=== PATIENT | male | born 1940 | race Two or more races ===

== ENCOUNTER → 2016-04-12 | Outpatient (CLI) | payer MEDICARE, MEDICAID ==
[2016-04-12] VITALS (9 sets, daily range): BP systolic 123–136; BP diastolic 70–85
[~2016-04-12] MED LIST: CYANOCOBALAMIN (B-12) 1000 MCG/1 ML VIAL IM ONE; CYANOCOBALAMIN (B-12) 1000 MCG/1 ML VIAL ONE; FUROSEMIDE INJECTION 10 ML ONE; FUROSEMIDE INJECTION 100 MG in SODIUM CHL 0.9% 100 ML IV SCH; ONDANSETRON HCL 4 MG/2 ML VIAL IV ONE; ONDANSETRON HCL 4 MG/2 ML VIAL ONE; POTASSIUM CHL 20 Meq TABLET PO ONE
[2016-04-12 16:37] LABS: Basophils # (auto) 0 uL; Basophils % (auto) 0.4 % (0.0-2.0); Eosinophils # (auto) 0.3 uL; Eosinophils % (auto) 4.9 % (0.0-7.0); Hematocrit 39.8 % (41.0-53.0); Hemoglobin 12.9 g/dL (13.5-17.5); Lymphocytes # (auto) 2.1 uL; Lymphocytes % (auto) 35.5 % (10.0-50.0); Mean Corpuscular Hgb Conc. 32.5 g/dL (32.0-36.0); Mean Corpuscular Volume 92.4 fL (80.0-100.0); Mean Platelet Volume 8.1 fL (7.4-10.4); Monocytes # (auto) 0.5 uL; Monocytes % (auto) 8.7 % (0.0-12.0); Neutrophils % (auto) 50.5 % (37.0-80.0); Platelet Count (auto) 222 10^3/uL (140-450); Red Cell Distribution Width 14.3 % (11.6-16.0); White Blood Cell 5.9 10^3/uL (4.4-10.8)
[2016-04-12 16:41] LABS: BUN/Creatinine Ratio 14.9; Calcium 9.1 mg/dL (8.5-10.1); Magnesium 2.3 mg/dL (1.6-2.6); Potassium 3.2 mmol/L (3.5-5.1)
== END | disposition home or self-care (01) ==
LOC: CHF HDHVI 12:21
PROVIDERS: ATTEND Internal Medicine Cardiovascular Disease
DX: I10 Essential (primary) hypertension (principal); E83.40 Disorders of magnesium metabolism, unspecified; D64.9 Anemia, unspecified
CPT/HCPCS: 36415; 80048; 83735; 85025; 96365; 96366; 96367; 96372; G0463; J2405

== ENCOUNTER → 2016-04-20 | Outpatient (CLI) | payer MEDICARE, MEDICAID ==
[~2016-04-20] VITALS: Ht 33 cm; Wt 0.5 kg
[2016-04-20] VITALS (10 sets, daily range): BP systolic 120–141; BP diastolic 72–83
[~2016-04-20] MED LIST changes: +FUROSEMIDE INJECTION 100 MG in SODIUM CHL 0.9% 90 ML IV SCH; -POTASSIUM CHL 20 Meq TABLET PO ONE
[2016-04-20 14:23] LABS: Basophils # (auto) 0 uL; Basophils % (auto) 0.6 % (0.0-2.0); Eosinophils # (auto) 0.2 uL; Eosinophils % (auto) 4.9 % (0.0-7.0); Hematocrit 38.5 % (41.0-53.0); Hemoglobin 12.4 g/dL (13.5-17.5); Lymphocytes # (auto) 1.6 uL; Lymphocytes % (auto) 31.7 % (10.0-50.0); Mean Corpuscular Hemoglobin 29.9 pg (28.0-32.0); Mean Corpuscular Hgb Conc. 32.3 g/dL (32.0-36.0); Mean Corpuscular Volume 92.6 fL (80.0-100.0); Mean Platelet Volume 8.1 fL (7.4-10.4); Monocytes # (auto) 0.3 uL; Neutrophils # (auto) 2.8 uL; Neutrophils % (auto) 55.8 % (37.0-80.0); Platelet Count (auto) 221 10^3/uL (140-450); Red Cell Distribution Width 14.5 % (11.6-16.0); White Blood Cell 4.9 10^3/uL (4.4-10.8)
[2016-04-20 14:40] LABS: BUN/Creatinine Ratio 14.8; Calcium 8.9 mg/dL (8.5-10.1); Magnesium 2.5 mg/dL (1.6-2.6); Potassium 3.5 mmol/L (3.5-5.1)
== END | disposition home or self-care (01) ==
LOC: CHF HDHVI 10:18
PROVIDERS: ATTEND Internal Medicine Cardiovascular Disease
DX: I10 Essential (primary) hypertension (principal); E83.40 Disorders of magnesium metabolism, unspecified; D64.9 Anemia, unspecified
CPT/HCPCS: 36415; 80048; 83735; 85025; 96365; 96366; 96367; 96372; G0463; J1642; J2405

== ENCOUNTER → 2016-04-26 | Outpatient (CLI) | payer MEDICARE, MEDICAID ==
[~2016-04-26] MED LIST changes: -CYANOCOBALAMIN (B-12) 1000 MCG/1 ML VIAL IM ONE; -FUROSEMIDE INJECTION 100 MG in SODIUM CHL 0.9% 100 ML IV SCH; -FUROSEMIDE INJECTION 100 MG in SODIUM CHL 0.9% 90 ML IV SCH; -ONDANSETRON HCL 4 MG/2 ML VIAL IV ONE; +POTASSIUM CHL 10 Meq TABLET PO ONE
[2016-04-26 12:15] VITALS: BP 137/83
[2016-04-26 12:45] VITALS: BP 137/82
[2016-04-26 13:00] VITALS: BP 125/77
[2016-04-26 13:30] VITALS: BP 128/58
[2016-04-26 15:15] VITALS: BP 141/80
[2016-04-26 16:53] LABS: Calcium 8.5 mg/dL (8.5-10.1); Magnesium 2.3 mg/dL (1.6-2.6); Potassium 3.2 mmol/L (3.5-5.1)
[2016-04-26 16:55] LABS: BUN/Creatinine Ratio 15.8
[2016-04-26 17:05] LABS: Basophils # (auto) 0 uL; Basophils % (auto) 0.6 % (0.0-2.0); Eosinophils # (auto) 0.3 uL; Eosinophils % (auto) 5.6 % (0.0-7.0); Hematocrit 37.7 % (41.0-53.0); Hemoglobin 12.6 g/dL (13.5-17.5); Lymphocytes # (auto) 1.5 uL; Lymphocytes % (auto) 31.9 % (10.0-50.0); Mean Corpuscular Hemoglobin 30.6 pg (28.0-32.0); Mean Corpuscular Hgb Conc. 33.5 g/dL (32.0-36.0); Mean Corpuscular Volume 91.4 fL (80.0-100.0); Mean Platelet Volume 7.8 fL (7.4-10.4); Monocytes # (auto) 0.3 uL; Neutrophils # (auto) 2.5 uL; Neutrophils % (auto) 54.9 % (37.0-80.0); Platelet Count (auto) 257 10^3/uL (140-450); Red Cell Distribution Width 14.4 % (11.6-16.0); White Blood Cell 4.6 10^3/uL (4.4-10.8)
== END | disposition home or self-care (01) ==
LOC: CHF HDHVI 11:44
PROVIDERS: ATTEND Internal Medicine Cardiovascular Disease
DX: I10 Essential (primary) hypertension (principal); D64.9 Anemia, unspecified; E83.40 Disorders of magnesium metabolism, unspecified
CPT/HCPCS: 36415; 80048; 83735; 85025; 85049; J1642; J2405

== ENCOUNTER → 2016-05-03 | Outpatient (CLI) | payer MEDICARE, MEDICAID ==
[2016-05-03] VITALS (7 sets, daily range): BP systolic 112–130; BP diastolic 59–76
[~2016-05-03] MED LIST changes: +CYANOCOBALAMIN (B-12) 1000 MCG/1 ML VIAL IM ONE; +FUROSEMIDE INJECTION 100 MG in SODIUM CHL 0.9% 100 ML IV SCH; -ONDANSETRON HCL 4 MG/2 ML VIAL ONE; -POTASSIUM CHL 10 Meq TABLET PO ONE
[2016-05-03 12:35] LABS: Basophils # (auto) 0.1 uL; Eosinophils # (auto) 0.3 uL; Eosinophils % (auto) 6.1 % (0.0-7.0); Hematocrit 37.3 % (41.0-53.0); Hemoglobin 12.2 g/dL (13.5-17.5); Lymphocytes # (auto) 1.7 uL; Lymphocytes % (auto) 31.9 % (10.0-50.0); Mean Corpuscular Hemoglobin 30.7 pg (28.0-32.0); Mean Corpuscular Hgb Conc. 32.7 g/dL (32.0-36.0); Mean Corpuscular Volume 93.9 fL (80.0-100.0); Mean Platelet Volume 7.8 fL (7.4-10.4); Monocytes # (auto) 0.5 uL; Monocytes % (auto) 8.9 % (0.0-12.0); Neutrophils # (auto) 2.8 uL; Platelet Count (auto) 205 10^3/uL (140-450); Red Cell Distribution Width 14.2 % (11.6-16.0); SUSPECT VIEW TRANSMISSION; White Blood Cell 5.4 10^3/uL (4.4-10.8)
[2016-05-03 12:37] LABS: Basophils % (auto) 0.1 % (0.0-2.0)
[2016-05-03 13:34] LABS: BUN/Creatinine Ratio 15.9; Calcium 8.7 mg/dL (8.5-10.1); Magnesium 2.3 mg/dL (1.6-2.6); Potassium 3.3 mmol/L (3.5-5.1)
== END | disposition home or self-care (01) ==
LOC: CHF HDHVI 10:21
PROVIDERS: ATTEND Internal Medicine Cardiovascular Disease
DX: I10 Essential (primary) hypertension (principal); E83.40 Disorders of magnesium metabolism, unspecified; D64.9 Anemia, unspecified
CPT/HCPCS: 36415; 80048; 83735; 85025; 85049; 96365; 96366; 96372; G0463; J1642

== ENCOUNTER → 2016-05-12 | Outpatient (CLI) | payer MEDICARE, MEDICAID ==
[2016-05-12] VITALS (10 sets, daily range): BP systolic 129–148; BP diastolic 70–79
[~2016-05-12] MED LIST changes: -CYANOCOBALAMIN (B-12) 1000 MCG/1 ML VIAL IM ONE; -CYANOCOBALAMIN (B-12) 1000 MCG/1 ML VIAL ONE; -FUROSEMIDE INJECTION 10 ML ONE
[2016-05-12] MEDS: CYANOCOBALAMIN (B-12) 1000 MCG/1 ML VIAL IM ONE (12:21)
[2016-05-12] MEDS: KETOROLAC TROMETH 60MG/2ML VIAL IM ONE ×2 (12:22→14:48)
[2016-05-12] MEDS: FUROSEMIDE INJECTION 100 MG in SODIUM CHL 0.9% 100 ML IV ONE (12:40)
[2016-05-12] MEDS: FUROSEMIDE INJECTION 10 ML ONE (14:47)
[2016-05-12] MEDS: CYANOCOBALAMIN (B-12) 1000 MCG/1 ML VIAL ONE (14:48)
[2016-05-12] MEDS: POTASSIUM CHL 20 Meq TABLET PO ONE ×2 (15:10→15:12)
[2016-05-12 16:17] LABS: Basophils # (auto) 0 uL; Basophils % (auto) 0.4 % (0.0-2.0); Eosinophils # (auto) 0.2 uL; Eosinophils % (auto) 4.4 % (0.0-7.0); Hematocrit 37.3 % (41.0-53.0); Hemoglobin 11.8 g/dL (13.5-17.5); Lymphocytes # (auto) 1.6 uL; Lymphocytes % (auto) 29.8 % (10.0-50.0); Mean Corpuscular Hemoglobin 29.5 pg (28.0-32.0); Mean Corpuscular Hgb Conc. 31.6 g/dL (32.0-36.0); Mean Corpuscular Volume 93.1 fL (80.0-100.0); Mean Platelet Volume 7.8 fL (7.4-10.4); Monocytes # (auto) 0.5 uL; Neutrophils % (auto) 55.4 % (37.0-80.0); Platelet Count (auto) 268 10^3/uL (140-450); Red Cell Distribution Width 14.8 % (11.6-16.0); White Blood Cell 5.3 10^3/uL (4.4-10.8)
[2016-05-12 16:42] LABS: Calcium 8.7 mg/dL (8.5-10.1); Potassium 3.9 mmol/L (3.5-5.1)
== END | disposition home or self-care (01) ==
LOC: CHF HDHVI 12:04
PROVIDERS: ATTEND Internal Medicine Cardiovascular Disease
DX: I10 Essential (primary) hypertension (principal); D64.9 Anemia, unspecified
CPT/HCPCS: 36415; 80048; 85025; 96365; 96366; 96367; 96372; G0463; J1642; J1885

== ENCOUNTER → 2016-05-26 | Outpatient (CLI) | payer MEDICARE, MEDICAID ==
[~2016-05-26] MED LIST changes: -FUROSEMIDE INJECTION 100 MG in SODIUM CHL 0.9% 100 ML IV SCH; +POTASSIUM CHL 20 Meq TABLET PO ONE
[2016-05-26 15:19] LABS: Basophils # (auto) 0 uL; Basophils % (auto) 0.5 % (0.0-2.0); Eosinophils # (auto) 0.4 uL; Eosinophils % (auto) 7.9 % (0.0-7.0); Hematocrit 39.9 % (41.0-53.0); Hemoglobin 12.8 g/dL (13.5-17.5); Lymphocytes # (auto) 2.5 uL; Lymphocytes % (auto) 45.5 % (10.0-50.0); Mean Corpuscular Hemoglobin 29.7 pg (28.0-32.0); Mean Corpuscular Hgb Conc. 32.1 g/dL (32.0-36.0); Mean Corpuscular Volume 92.4 fL (80.0-100.0); Mean Platelet Volume 7.5 fL (7.4-10.4); Monocytes # (auto) 0.4 uL; Monocytes % (auto) 8.1 % (0.0-12.0); Neutrophils # (auto) 2.1 uL; Platelet Count (auto) 256 10^3/uL (140-450); Red Cell Distribution Width 14.7 % (11.6-16.0); White Blood Cell 5.4 10^3/uL (4.4-10.8)
[2016-05-26 15:32] LABS: Albumin 3.6 g/dL (3.4-5.0); BUN/Creatinine Ratio 15.1; Calcium 8.9 mg/dL (8.5-10.1); Magnesium 2.1 mg/dL (1.6-2.6); Potassium 3.3 mmol/L (3.5-5.1)
[2016-05-26 15:35] LABS: Bilirubin, Total 0.7 mg/dL (0.2-1.0); Total Protein 7.4 g/dL (6.4-8.2)
[2016-05-26] MEDS: POTASSIUM CHL 20 Meq TABLET PO ONE (16:10)
[2016-05-26 16:35] VITALS: BP 115/64
== END | disposition home or self-care (01) ==
LOC: CHF HDHVI 14:26
PROVIDERS: ATTEND Internal Medicine Cardiovascular Disease
DX: I10 Essential (primary) hypertension (principal); D64.9 Anemia, unspecified; E83.40 Disorders of magnesium metabolism, unspecified; E11.9 Type 2 diabetes mellitus without complications; E03.9 Hypothyroidism, unspecified
CPT/HCPCS: 36415; 80053; 82962; 83036; 83735; 84443; 85025; 93005; G0463; J1642

== ENCOUNTER → 2016-05-29 | Outpatient (CLI) | payer MEDICARE, MEDICAID ==
[~2016-05-29] MED LIST changes: +CYANOCOBALAMIN (B-12) 1000 MCG/1 ML VIAL ONE; +FUROSEMIDE INJECTION 10 ML ONE; +ONDANSETRON HCL 4 MG/2 ML VIAL ONE; -POTASSIUM CHL 20 Meq TABLET PO ONE; +diphenhdrAMINE HCL 50 MG/1 ML VL ONE
[2016-05-29 12:30] VITALS: BP 130/68
[2016-05-29 13:30] VITALS: BP 143/76
[2016-05-29 14:00] VITALS: BP 126/68
[2016-05-29 15:00] VITALS: BP 149/81
[2016-05-29 15:30] VITALS: BP 121/70
[2016-05-29 16:30] VITALS: BP 136/75
[2016-05-29 17:46] LABS: Potassium 3.3 mmol/L (3.5-5.1)
== END | disposition home or self-care (01) ==
LOC: CHF HDHVI 11:37
PROVIDERS: ATTEND Internal Medicine Cardiovascular Disease
DX: I50.9 Heart failure, unspecified (principal); Z79.899 Other long term (current) drug therapy
CPT/HCPCS: 36415; 82565; 82962; 84132; 84520; J1642; J2405

== ENCOUNTER → 2016-06-05 | Outpatient (CLI) | payer MEDICARE, MEDICAID ==
[2016-06-05] VITALS (11 sets, daily range): BP systolic 116–149; BP diastolic 56–77
[~2016-06-05] MED LIST changes: +CYANOCOBALAMIN (B-12) 1000 MCG/1 ML VIAL IM ONE; +FUROSEMIDE 100 MG/10ML VIAL IV ONE; -ONDANSETRON HCL 4 MG/2 ML VIAL ONE; +diphenhdrAMINE HCL 50 MG/1 ML VL IV ONE; +methylPREDNISolone SOD SUCC 125 MG/2 ML VL IV ONE; +methylPREDNISolone SOD SUCC 125 MG/2 ML VL ONE
[2016-06-05 16:25] LABS: Basophils # (auto) 0 uL; Basophils % (auto) 0.3 % (0.0-2.0); Eosinophils # (auto) 0.4 uL; Hemoglobin 12.4 g/dL (13.5-17.5); Lymphocytes # (auto) 1.8 uL; Lymphocytes % (auto) 33.2 % (10.0-50.0); Mean Corpuscular Hgb Conc. 33.3 g/dL (32.0-36.0); Mean Corpuscular Volume 93.1 fL (80.0-100.0); Mean Platelet Volume 8.3 fL (7.4-10.4); Monocytes # (auto) 0.4 uL; Monocytes % (auto) 7.3 % (0.0-12.0); Neutrophils # (auto) 2.8 uL; Neutrophils % (auto) 52.2 % (37.0-80.0); Platelet Count (auto) 238 10^3/uL (140-450); Red Cell Distribution Width 15.6 % (11.6-16.0); White Blood Cell 5.3 10^3/uL (4.4-10.8)
[2016-06-05 16:48] LABS: Potassium 3.2 mmol/L (3.5-5.1)
== END | disposition home or self-care (01) ==
LOC: CHF HDHVI 11:34
PROVIDERS: ATTEND Internal Medicine Cardiovascular Disease
DX: I50.9 Heart failure, unspecified (principal); Z79.899 Other long term (current) drug therapy; D64.9 Anemia, unspecified
CPT/HCPCS: 36415; 82565; 84132; 84520; 85025; 96365; 96366; 96372; 96375; G0463; J1642

== ENCOUNTER → 2016-06-09 | Outpatient (CLI) | payer MEDICARE, MEDICAID ==
[~2016-06-09] MED LIST changes: -CYANOCOBALAMIN (B-12) 1000 MCG/1 ML VIAL IM ONE; -FUROSEMIDE 100 MG/10ML VIAL IV ONE; +KETOROLAC TROMETH 60MG/2ML VIAL IM ONE; +ONDANSETRON HCL 4 MG/2 ML VIAL IV ONE; +ONDANSETRON HCL 4 MG/2 ML VIAL ONE; +POTASSIUM CHL 20 Meq TABLET PO ONE; -diphenhdrAMINE HCL 50 MG/1 ML VL IV ONE; -diphenhdrAMINE HCL 50 MG/1 ML VL ONE; -methylPREDNISolone SOD SUCC 125 MG/2 ML VL IV ONE; -methylPREDNISolone SOD SUCC 125 MG/2 ML VL ONE
[2016-06-09 11:50] VITALS: BP 117/70
== END | disposition home or self-care (01) ==
LOC: CHF HDHVI 11:06
PROVIDERS: ATTEND Internal Medicine Cardiovascular Disease
DX: I50.9 Heart failure, unspecified (principal); R11.0 Nausea; G89.29 Other chronic pain
CPT/HCPCS: 96372; 96374; G0463; J1642; J1885; J2405

== ENCOUNTER → 2016-06-12 | Outpatient (CLI) | payer MEDICARE, MEDICAID ==
[2016-06-12 12:15] VITALS: BP 118/64
[2016-06-12 13:00] VITALS: BP 113/62
[2016-06-12 13:30] VITALS: BP 128/83
[2016-06-12 14:00] VITALS: BP 125/70
[2016-06-12 14:30] VITALS: BP 135/69
[2016-06-12 15:00] VITALS: BP 131/74
[2016-06-12 16:19] LABS: Basophils # (auto) 0 uL; Basophils % (auto) 0.5 % (0.0-2.0); Eosinophils # (auto) 0.3 uL; Eosinophils % (auto) 6.6 % (0.0-7.0); Hematocrit 36.2 % (41.0-53.0); Hemoglobin 12.5 g/dL (13.5-17.5); Lymphocytes # (auto) 1.5 uL; Lymphocytes % (auto) 28.5 % (10.0-50.0); Mean Corpuscular Hemoglobin 32.3 pg (28.0-32.0); Mean Corpuscular Hgb Conc. 34.6 g/dL (32.0-36.0); Mean Corpuscular Volume 93.4 fL (80.0-100.0); Mean Platelet Volume 7.8 fL (7.4-10.4); Monocytes # (auto) 0.4 uL; Monocytes % (auto) 8.4 % (0.0-12.0); Neutrophils # (auto) 2.9 uL; Platelet Count (auto) 281 10^3/uL (140-450); Red Cell Distribution Width 14.7 % (11.6-16.0); White Blood Cell 5.2 10^3/uL (4.4-10.8)
[2016-06-12 16:33] LABS: BUN/Creatinine Ratio 17.8; Calcium 8.3 mg/dL (8.5-10.1); Magnesium 2.1 mg/dL (1.6-2.6); Potassium 3.2 mmol/L (3.5-5.1)
== END | disposition home or self-care (01) ==
LOC: CHF HDHVI 11:35
PROVIDERS: ATTEND Internal Medicine Cardiovascular Disease
DX: I10 Essential (primary) hypertension (principal); E83.40 Disorders of magnesium metabolism, unspecified; D64.9 Anemia, unspecified
CPT/HCPCS: 36415; 80048; 82962; 83735; 85025

== ENCOUNTER → 2016-06-15 | Outpatient (CLI) | payer MEDICARE, MEDICAID ==
[~2016-06-15] MED LIST changes: -CYANOCOBALAMIN (B-12) 1000 MCG/1 ML VIAL ONE; +FUROSEMIDE 100 MG/10ML VIAL IV ONE; -KETOROLAC TROMETH 60MG/2ML VIAL IM ONE; -POTASSIUM CHL 20 Meq TABLET PO ONE
[2016-06-15 11:30] VITALS: BP 111/70
[2016-06-15 12:00] VITALS: BP 103/58
[2016-06-15 12:30] VITALS: BP 104/68
[2016-06-15 13:00] VITALS: BP 115/68
[2016-06-15 14:15] VITALS: BP 123/76
== END | disposition home or self-care (01) ==
LOC: CHF HDHVI 10:54
PROVIDERS: ATTEND Internal Medicine Cardiovascular Disease
DX: I11.0 Hypertensive heart disease with heart failure (principal); I50.9 Heart failure, unspecified; I25.10 Atherosclerotic heart disease of native coronary artery without angina pectoris; E78.00 Pure hypercholesterolemia, unspecified; R11.0 Nausea
CPT/HCPCS: 96365; 96366; 96375; G0463; J1642; J1940; J2405

== ENCOUNTER → 2016-06-20 | Outpatient (CLI) | payer MEDICARE, MEDICAID ==
[2016-06-20] VITALS (8 sets, daily range): BP systolic 101–139; BP diastolic 60–79
[~2016-06-20] VITALS: Ht 30.5 cm; Wt 98.1 kg
[~2016-06-20] MED LIST changes: +CYANOCOBALAMIN (B-12) 1000 MCG/1 ML VIAL IM ONE; +CYANOCOBALAMIN (B-12) 1000 MCG/1 ML VIAL ONE; -FUROSEMIDE 100 MG/10ML VIAL IV ONE; +FUROSEMIDE INJECTION 100 MG in SODIUM CHL 0.9% 100 ML IV SCH; -ONDANSETRON HCL 4 MG/2 ML VIAL IV ONE; -ONDANSETRON HCL 4 MG/2 ML VIAL ONE; +POTASSIUM CHL 10MEQ/50ML 50 ML IV ONE; +POTASSIUM CHL 20MEQ/100ML 50 ML IV ONE
[2016-06-20 16:20] LABS: Basophils # (auto) 0 uL; Basophils % (auto) 0.4 % (0.0-2.0); Eosinophils # (auto) 0.2 uL; Eosinophils % (auto) 2.9 % (0.0-7.0); Hematocrit 36.8 % (41.0-53.0); Hemoglobin 12.3 g/dL (13.5-17.5); Lymphocytes # (auto) 1.4 uL; Lymphocytes % (auto) 20.9 % (10.0-50.0); Mean Corpuscular Hgb Conc. 33.4 g/dL (32.0-36.0); Mean Corpuscular Volume 92.9 fL (80.0-100.0); Monocytes # (auto) 0.4 uL; Monocytes % (auto) 6.8 % (0.0-12.0); Neutrophils # (auto) 4.6 uL; Platelet Count (auto) 253 10^3/uL (140-450); Red Cell Distribution Width 15.3 % (11.6-16.0); White Blood Cell 6.7 10^3/uL (4.4-10.8)
[2016-06-20 16:50] LABS: BUN/Creatinine Ratio 18.9; Calcium 8.1 mg/dL (8.5-10.1); Magnesium 2.2 mg/dL (1.6-2.6); Potassium 3.2 mmol/L (3.5-5.1)
== END | disposition home or self-care (01) ==
LOC: CHF HDHVI 11:17
PROVIDERS: ATTEND Internal Medicine Cardiovascular Disease
DX: I10 Essential (primary) hypertension (principal); E83.40 Disorders of magnesium metabolism, unspecified; D64.9 Anemia, unspecified
CPT/HCPCS: 36415; 80048; 83735; 85025; J1642

== ENCOUNTER → 2016-06-27 | Outpatient (CLI) | payer MEDICARE, MEDICAID ==
[2016-06-27] VITALS (8 sets, daily range): BP systolic 102–137; BP diastolic 59–82
[~2016-06-27] VITALS: Ht 30.5 cm; Wt 0.5 kg
[~2016-06-27] MED LIST changes: -POTASSIUM CHL 10MEQ/50ML 50 ML IV ONE; +POTASSIUM CHL 20 Meq TABLET PO ONE; -POTASSIUM CHL 20MEQ/100ML 50 ML IV ONE
[2016-06-27 12:13] LABS: Basophils # (auto) 0 uL; Basophils % (auto) 0.4 % (0.0-2.0); Eosinophils # (auto) 0.2 uL; Eosinophils % (auto) 4.6 % (0.0-7.0); Hematocrit 34.5 % (41.0-53.0); Hemoglobin 11.9 g/dL (13.5-17.5); Lymphocytes # (auto) 1.6 uL; Lymphocytes % (auto) 38.8 % (10.0-50.0); Mean Corpuscular Hemoglobin 31.6 pg (28.0-32.0); Mean Corpuscular Hgb Conc. 34.5 g/dL (32.0-36.0); Mean Corpuscular Volume 91.6 fL (80.0-100.0); Mean Platelet Volume 7.6 fL (7.4-10.4); Monocytes # (auto) 0.3 uL; Monocytes % (auto) 7.7 % (0.0-12.0); Neutrophils % (auto) 48.5 % (37.0-80.0); Platelet Count (auto) 288 10^3/uL (140-450); Red Cell Distribution Width 14.8 % (11.6-16.0); White Blood Cell 4.1 10^3/uL (4.4-10.8)
[2016-06-27 12:37] LABS: Potassium 3.5 mmol/L (3.5-5.1)
== END | disposition home or self-care (01) ==
LOC: CHF HDHVI 10:32
PROVIDERS: ATTEND Internal Medicine Cardiovascular Disease
DX: I50.9 Heart failure, unspecified (principal); D64.9 Anemia, unspecified; Z79.899 Other long term (current) drug therapy
CPT/HCPCS: 36415; 82565; 84132; 84520; 85025; 96365; 96366; 96372; G0463; J1642

== ENCOUNTER → 2016-07-13 | Outpatient (CLI) | payer MEDICARE, MEDICAID ==
[~2016-07-13] MED LIST changes: -CYANOCOBALAMIN (B-12) 1000 MCG/1 ML VIAL ONE; +FUROSEMIDE 100 MG/10ML VIAL IV ONE; -FUROSEMIDE INJECTION 10 ML ONE; -POTASSIUM CHL 20 Meq TABLET PO ONE; +SODIUM CHLORIDE 0.9% 100 ML IV SCH
[2016-07-13 13:35] VITALS: BP 124/74
[2016-07-13 13:56] LABS: Potassium 3.3 mmol/L (3.5-5.1)
[2016-07-13 13:57] LABS: BUN/Creatinine Ratio 15.2; Calcium 8.6 mg/dL (8.5-10.1)
== END | disposition home or self-care (01) ==
LOC: CHF HDHVI 09:45
PROVIDERS: ATTEND Internal Medicine Cardiovascular Disease
DX: I10 Essential (primary) hypertension (principal)
CPT/HCPCS: 36415; 80048; 96365; 96366; 96372; G0463

== ENCOUNTER → 2016-07-28 | Outpatient (CLI) | payer MEDICARE, MEDICAID ==
[~2016-07-28] VITALS: Ht 30.5 cm; Wt 96.1 kg
[2016-07-28] VITALS (8 sets, daily range): BP systolic 123–147; BP diastolic 60–82
[~2016-07-28] MED LIST changes: -FUROSEMIDE 100 MG/10ML VIAL IV ONE; +FUROSEMIDE INJECTION 10 ML ONE; +FUROSEMIDE INJECTION 100 MG in SODIUM CHL 0.9% 100 ML IV ONE; +METOCLOPRAMIDE HCL 5MG/ml INJ 2ml VIAL IV ONE; +METOCLOPRAMIDE HCL 5MG/ml INJ 2ml VIAL ONE; -SODIUM CHLORIDE 0.9% 100 ML IV SCH
[2016-07-28 12:13] LABS: Basophils # (auto) 0 uL; Basophils % (auto) 0.3 % (0.0-2.0); Eosinophils # (auto) 0.3 uL; Eosinophils % (auto) 7.3 % (0.0-7.0); Hematocrit 38.3 % (41.0-53.0); Lymphocytes # (auto) 1.8 uL; Lymphocytes % (auto) 43.8 % (10.0-50.0); Mean Corpuscular Hemoglobin 31.9 pg (28.0-32.0); Mean Corpuscular Hgb Conc. 33.9 g/dL (32.0-36.0); Mean Corpuscular Volume 94.2 fL (80.0-100.0); Monocytes # (auto) 0.3 uL; Monocytes % (auto) 8.5 % (0.0-12.0); Neutrophils # (auto) 1.6 uL; Neutrophils % (auto) 40.1 % (37.0-80.0); Platelet Count (auto) 244 10^3/uL (140-450); Red Cell Distribution Width 14.1 % (11.6-16.0); White Blood Cell 4.1 10^3/uL (4.4-10.8)
[2016-07-28 12:50] LABS: Albumin 3.7 g/dL (3.4-5.0); BUN/Creatinine Ratio 13.2; Calcium 8.6 mg/dL (8.5-10.1); Magnesium 2.1 mg/dL (1.6-2.6); Potassium 3.2 mmol/L (3.5-5.1)
[2016-07-28 12:53] LABS: Bilirubin, Total 0.8 mg/dL (0.2-1.0); Total Protein 7.4 g/dL (6.4-8.2)
== END | disposition home or self-care (01) ==
LOC: CHF HDHVI 10:43
PROVIDERS: ATTEND Internal Medicine Cardiovascular Disease
DX: I10 Essential (primary) hypertension (principal); E83.40 Disorders of magnesium metabolism, unspecified; D64.9 Anemia, unspecified
CPT/HCPCS: 36415; 80053; 83735; 85025; 96365; 96366; 96375; G0463; J1642

== ENCOUNTER → 2016-08-11 | Outpatient (CLI) | payer MEDICARE, MEDICAID ==
[~2016-08-11] MED LIST changes: -CYANOCOBALAMIN (B-12) 1000 MCG/1 ML VIAL IM ONE; +DEXTROSE (50%) 50ML SYRG IV ONE; +DEXTROSE 50% SYRINGE 50 ML IV ONE; -FUROSEMIDE INJECTION 100 MG in SODIUM CHL 0.9% 100 ML IV ONE; +KETOROLAC TROMETH 60MG/2ML VIAL IM ONE; -METOCLOPRAMIDE HCL 5MG/ml INJ 2ml VIAL IV ONE; -METOCLOPRAMIDE HCL 5MG/ml INJ 2ml VIAL ONE
[2016-08-11 11:30] VITALS: BP 121/66
[2016-08-11 12:00] VITALS: BP 112/65
[2016-08-11 12:30] VITALS: BP 103/71
[2016-08-11 13:00] VITALS: BP 126/80
[2016-08-11 15:20] VITALS: BP 119/69
[2016-08-11 16:35] LABS: Basophils # (auto) 0 uL; Basophils % (auto) 0.2 % (0.0-2.0); Eosinophils # (auto) 0.3 uL; Eosinophils % (auto) 6.3 % (0.0-7.0); Hematocrit 37.1 % (41.0-53.0); Hemoglobin 12.3 g/dL (13.5-17.5); Lymphocytes # (auto) 1.5 uL; Lymphocytes % (auto) 34.9 % (10.0-50.0); Mean Corpuscular Hgb Conc. 33.1 g/dL (32.0-36.0); Mean Corpuscular Volume 93.8 fL (80.0-100.0); Mean Platelet Volume 8.1 fL (7.4-10.4); Monocytes # (auto) 0.3 uL; Monocytes % (auto) 6.9 % (0.0-12.0); Neutrophils # (auto) 2.3 uL; Neutrophils % (auto) 51.7 % (37.0-80.0); Platelet Count (auto) 238 10^3/uL (140-450); Red Cell Distribution Width 14.1 % (11.6-16.0); White Blood Cell 4.4 10^3/uL (4.4-10.8)
[2016-08-11 16:51] LABS: Albumin 3.5 g/dL (3.4-5.0); BUN/Creatinine Ratio 17.1; Bilirubin, Total 0.6 mg/dL (0.2-1.0); Calcium 8.7 mg/dL (8.5-10.1); Potassium 3.1 mmol/L (3.5-5.1); Total Protein 7.2 g/dL (6.4-8.2)
== END | disposition home or self-care (01) ==
LOC: CHF HDHVI 10:42
PROVIDERS: ATTEND Internal Medicine Cardiovascular Disease
DX: I10 Essential (primary) hypertension (principal); E11.9 Type 2 diabetes mellitus without complications; D64.9 Anemia, unspecified
CPT/HCPCS: 36415; 80053; 82962; 83036; 85025; 96365; 96366; 96372; G0463; J1642; J1885

== ENCOUNTER → 2016-08-14 | Outpatient (CLI) | payer MEDICARE, MEDICAID ==
[2016-08-14] VITALS (8 sets, daily range): BP systolic 99–131; BP diastolic 60–81
[~2016-08-14] MED LIST changes: +CYANOCOBALAMIN (B-12) 1000 MCG/1 ML VIAL IM ONE; +CYANOCOBALAMIN (B-12) 1000 MCG/1 ML VIAL ONE; -DEXTROSE (50%) 50ML SYRG IV ONE; -DEXTROSE 50% SYRINGE 50 ML IV ONE; +KETOROLAC TROMETH 30 MG/ML 1ML VIAL IV ONE
[2016-08-14 16:33] LABS: Basophils # (auto) 0 uL; Basophils % (auto) 0.5 % (0.0-2.0); Eosinophils # (auto) 0.3 uL; Eosinophils % (auto) 5.9 % (0.0-7.0); Hematocrit 36.1 % (41.0-53.0); Lymphocytes # (auto) 1.5 uL; Lymphocytes % (auto) 33.9 % (10.0-50.0); Mean Corpuscular Hemoglobin 31.3 pg (28.0-32.0); Mean Corpuscular Hgb Conc. 33.2 g/dL (32.0-36.0); Mean Corpuscular Volume 94.5 fL (80.0-100.0); Mean Platelet Volume 7.9 fL (7.4-10.4); Monocytes # (auto) 0.3 uL; Monocytes % (auto) 6.3 % (0.0-12.0); Neutrophils # (auto) 2.3 uL; Neutrophils % (auto) 53.4 % (37.0-80.0); Platelet Count (auto) 243 10^3/uL (140-450); Red Cell Distribution Width 13.7 % (11.6-16.0); White Blood Cell 4.3 10^3/uL (4.4-10.8)
[2016-08-14 16:47] LABS: BUN/Creatinine Ratio 18.6; Calcium 8.7 mg/dL (8.5-10.1); Potassium 3.4 mmol/L (3.5-5.1)
== END | disposition home or self-care (01) ==
LOC: CHF HDHVI 11:16
PROVIDERS: ATTEND Internal Medicine Cardiovascular Disease
DX: I10 Essential (primary) hypertension (principal); D64.9 Anemia, unspecified
CPT/HCPCS: 36415; 73200; 80048; 85025; 96365; 96366; 96372; 96374; G0463; J1642; J1885

== ENCOUNTER → 2016-08-18 | Outpatient (CLI) | payer MEDICARE, MEDICAID ==
[2016-08-18] VITALS (7 sets, daily range): BP systolic 119–139; BP diastolic 57–80
[~2016-08-18] MED LIST changes: -CYANOCOBALAMIN (B-12) 1000 MCG/1 ML VIAL IM ONE; -CYANOCOBALAMIN (B-12) 1000 MCG/1 ML VIAL ONE; +FUROSEMIDE INJECTION 100 MG in SODIUM CHL 0.9% 100 ML IV ONE; -FUROSEMIDE INJECTION 100 MG in SODIUM CHL 0.9% 100 ML IV SCH; -KETOROLAC TROMETH 30 MG/ML 1ML VIAL IV ONE; -KETOROLAC TROMETH 60MG/2ML VIAL IM ONE
== END | disposition home or self-care (01) ==
LOC: CHF HDHVI 11:45
PROVIDERS: ATTEND Internal Medicine Cardiovascular Disease
DX: I50.9 Heart failure, unspecified (principal)
CPT/HCPCS: 82962; 96365; 96366; G0463; J1642; J1940; 96367

== ENCOUNTER → 2016-08-22 | Outpatient (CLI) | payer MEDICARE, MEDICAID ==
[2016-08-22] VITALS (9 sets, daily range): BP systolic 112–134; BP diastolic 63–73
[~2016-08-22] VITALS: Ht 30.5 cm; Wt 96.2 kg
[~2016-08-22] MED LIST changes: +CYANOCOBALAMIN (B-12) 1000 MCG/1 ML VIAL IM ONE; +CYANOCOBALAMIN (B-12) 1000 MCG/1 ML VIAL ONE; +FUROSEMIDE 100 MG/10ML VIAL IV ONE; -FUROSEMIDE INJECTION 100 MG in SODIUM CHL 0.9% 100 ML IV ONE
[2016-08-22 17:00] LABS: Magnesium 2.3 mg/dL (1.6-2.6); Potassium 3.4 mmol/L (3.5-5.1)
== END | disposition home or self-care (01) ==
LOC: CHF HDHVI 10:35
PROVIDERS: ATTEND Internal Medicine Cardiovascular Disease
DX: I10 Essential (primary) hypertension (principal); R94.4 Abnormal results of kidney function studies; E83.42 Hypomagnesemia
CPT/HCPCS: 36415; 82565; 83735; 84132; 84520; 96365; 96366; 96372; G0463; J1642

== ENCOUNTER → 2016-08-29 | Outpatient (CLI) | payer MEDICARE, MEDICAID ==
[~2016-08-29] MED LIST changes: +POTASSIUM CHL 20 Meq TABLET PO ONE; +SODIUM CHLORIDE 0.9% 100 ML IV SCH
[2016-08-29 13:00] VITALS: BP 120/81
[2016-08-29 13:30] VITALS: BP 128/84
[2016-08-29 14:00] VITALS: BP 127/67
[2016-08-29 14:30] VITALS: BP 118/63
[2016-08-29 15:54] VITALS: BP 119/75
[2016-08-29 16:25] LABS: BUN/Creatinine Ratio 15.4; Basophils # (auto) 0 uL; Basophils % (auto) 0.4 % (0.0-2.0); Calcium 8.9 mg/dL (8.5-10.1); Eosinophils # (auto) 0.3 uL; Eosinophils % (auto) 5.1 % (0.0-7.0); Hemoglobin 13.2 g/dL (13.5-17.5); Lymphocytes # (auto) 1.7 uL; Lymphocytes % (auto) 29.9 % (10.0-50.0); Mean Corpuscular Hgb Conc. 33.8 g/dL (32.0-36.0); Mean Corpuscular Volume 94.8 fL (80.0-100.0); Mean Platelet Volume 8.2 fL (7.4-10.4); Monocytes # (auto) 0.6 uL; Monocytes % (auto) 10.8 % (0.0-12.0); Neutrophils % (auto) 53.8 % (37.0-80.0); Platelet Count (auto) 247 10^3/uL (140-450); Potassium 3.5 mmol/L (3.5-5.1); Red Cell Distribution Width 14.1 % (11.6-16.0); White Blood Cell 5.6 10^3/uL (4.4-10.8)
== END | disposition home or self-care (01) ==
LOC: CHF HDHVI 11:55
PROVIDERS: ATTEND Internal Medicine Cardiovascular Disease
DX: D64.9 Anemia, unspecified (principal); I10 Essential (primary) hypertension
CPT/HCPCS: 36415; 80048; 85025; 93701; 96365; 96366; 96372; G0463; J1642

== ENCOUNTER → 2016-09-05 | Outpatient (CLI) | payer MEDICARE, MEDICAID ==
[~2016-09-05] MED LIST changes: -SODIUM CHLORIDE 0.9% 100 ML IV SCH
[2016-09-05 16:00] VITALS: BP 124/78
[2016-09-05 17:28] LABS: BUN/Creatinine Ratio 12.4; Calcium 8.6 mg/dL (8.5-10.1); Potassium 3.1 mmol/L (3.5-5.1)
== END | disposition home or self-care (01) ==
LOC: CHF HDHVI 11:32
PROVIDERS: ATTEND Internal Medicine Cardiovascular Disease
DX: I10 Essential (primary) hypertension (principal)
CPT/HCPCS: 36415; 80048; 96365; 96367; 96372; G0463

== ENCOUNTER → 2016-10-03 | Outpatient (CLI) | payer MEDICARE, MEDICAID ==
[~2016-10-03] MED LIST changes: -FUROSEMIDE 100 MG/10ML VIAL IV ONE; +FUROSEMIDE INJECTION 100 MG in SODIUM CHL 0.9% 100 ML IV SCH
[2016-10-03 10:00] VITALS: BP 141/77
[2016-10-03 10:30] VITALS: BP 152/71
[2016-10-03 11:00] VITALS: BP 141/77
[2016-10-03 12:26] LABS: Basophils # (auto) 0 uL; Basophils % (auto) 0.6 % (0.0-2.0); CONDITION Y; Eosinophils # (auto) 0.2 uL; Eosinophils % (auto) 4.7 % (0.0-7.0); Hematocrit 38.3 % (41.0-53.0); Hemoglobin 13.1 g/dL (13.5-17.5); Lymphocytes # (auto) 1.5 uL; Lymphocytes % (auto) 29.3 % (10.0-50.0); Mean Corpuscular Hemoglobin 31.9 pg (28.0-32.0); Mean Corpuscular Hgb Conc. 34.1 g/dL (32.0-36.0); Mean Corpuscular Volume 93.5 fL (80.0-100.0); Mean Platelet Volume 8.2 fL (7.4-10.4); Monocytes # (auto) 0.4 uL; Monocytes % (auto) 7.1 % (0.0-12.0); Neutrophils % (auto) 58.3 % (37.0-80.0); Platelet Count (auto) 274 10^3/uL (140-450); Red Cell Distribution Width 14.3 % (11.6-16.0); White Blood Cell 5.1 10^3/uL (4.4-10.8)
[2016-10-03 12:30] VITALS: BP 153/70
[2016-10-03 12:51] LABS: BUN/Creatinine Ratio 11.8; Calcium 8.6 mg/dL (8.5-10.1); Potassium 3.2 mmol/L (3.5-5.1)
[2016-10-03 13:00] VITALS: BP 147/75
[2016-10-03 13:30] VITALS: BP 118/76
== END | disposition home or self-care (01) ==
LOC: CHF HDHVI 09:12
PROVIDERS: ATTEND Internal Medicine Cardiovascular Disease
DX: I10 Essential (primary) hypertension (principal); E83.42 Hypomagnesemia; D64.9 Anemia, unspecified
CPT/HCPCS: 36415; 80048; 83735; 85025; 96365; 96366; 96372; G0463; J1642; J1940; J3420

== ENCOUNTER → 2017-01-01 | Outpatient (CLI) | payer MEDICARE, MEDICAID ==
[~2017-01-01] MED LIST changes: -FUROSEMIDE INJECTION 10 ML ONE; -FUROSEMIDE INJECTION 100 MG in SODIUM CHL 0.9% 100 ML IV SCH; -POTASSIUM CHL 20 Meq TABLET PO ONE
[2017-01-01 13:30] VITALS: BP 110/64
[2017-01-01 14:00] VITALS: BP 107/65
[2017-01-01 16:52] LABS: Basophils # (auto) 0 uL; Basophils % (auto) 0.4 % (0.0-2.0); Eosinophils # (auto) 0.3 uL; Eosinophils % (auto) 3.3 % (0.0-7.0); Hematocrit 39.2 % (41.0-53.0); Hemoglobin 13.1 g/dL (13.5-17.5); Lymphocytes # (auto) 2.2 uL; Lymphocytes % (auto) 25.6 % (10.0-50.0); Mean Corpuscular Hemoglobin 31.6 pg (28.0-32.0); Mean Corpuscular Hgb Conc. 33.4 g/dL (32.0-36.0); Mean Corpuscular Volume 94.8 fL (80.0-100.0); Mean Platelet Volume 7.9 fL (6.9-10.8); Monocytes # (auto) 0.8 uL; Monocytes % (auto) 8.8 % (0.0-12.0); Neutrophils # (auto) 5.3 uL; Neutrophils % (auto) 61.9 % (37.0-80.0); Nucleated Red Blood Cells % 0.2 %; Platelet Count (auto) 210 10^3/uL (140-450); Red Cell Distribution Width 13.8 % (11.8-14.3); White Blood Cell 8.6 10^3/uL (4.4-10.8)
[2017-01-01 17:02] LABS: Albumin 3.7 g/dL (3.4-5.0); BUN/Creatinine Ratio 13.1; Calcium 8.8 mg/dL (8.5-10.1); Potassium 3.5 mmol/L (3.5-5.1)
[2017-01-01 17:05] LABS: Bilirubin, Total 0.7 mg/dL (0.2-1.0); Total Protein 7.4 g/dL (6.4-8.2)
[2017-01-01 17:17] LABS: B-Type Natriuretic Peptide 41.34 pg/mL (0-100)
[2017-01-01 17:43] LABS: Temperature: 23.5 C (20.0-25.0)
== END | disposition home or self-care (01) ==
LOC: CHF HDHVI 13:27
PROVIDERS: ATTEND Internal Medicine Cardiovascular Disease
DX: I11.0 Hypertensive heart disease with heart failure (principal); I50.9 Heart failure, unspecified; I25.10 Atherosclerotic heart disease of native coronary artery without angina pectoris; E03.9 Hypothyroidism, unspecified; E11.9 Type 2 diabetes mellitus without complications; D64.9 Anemia, unspecified; E55.9 Vitamin D deficiency, unspecified; D51.9 Vitamin B12 deficiency anemia, unspecified; R53.83 Other fatigue; Z95.1 Presence of aortocoronary bypass graft
CPT/HCPCS: 36415; 80053; 82306; 82607; 83036; 83880; 85025; 96372; G0463; J1642; J3420

== ENCOUNTER → 2017-01-04 | Outpatient (CLI) | payer MEDICARE, MEDICAID | END | disposition home or self-care (01) | LOC: Rad HDHVI 14:26 | PROVIDERS: ATTEND Internal Medicine Cardiovascular Disease | DX: I51.7 Cardiomegaly (principal); I38 Endocarditis, valve unspecified | CPT/HCPCS: 93306 ==

== ENCOUNTER → 2017-01-10 | Outpatient (CLI) | payer MEDICARE, MEDICAID ==
[~2017-01-10] MED LIST changes: +ADENOSINE 79 MG in GIVE UN-DILUTED 0 ML IV ONE; +ADENOSINE 90 MG/30 ML INJ IV ONE; -CYANOCOBALAMIN (B-12) 1000 MCG/1 ML VIAL IM ONE; -CYANOCOBALAMIN (B-12) 1000 MCG/1 ML VIAL ONE
== END | disposition home or self-care (01) ==
LOC: Rad HDHVI 09:23
PROVIDERS: ATTEND Internal Medicine Cardiovascular Disease
DX: I11.0 Hypertensive heart disease with heart failure (principal); I50.9 Heart failure, unspecified; I25.10 Atherosclerotic heart disease of native coronary artery without angina pectoris; E78.5 Hyperlipidemia, unspecified; G47.00 Insomnia, unspecified; R20.2 Paresthesia of skin; R79.1 Abnormal coagulation profile; R97.20 Elevated prostate specific antigen [PSA]; Z95.1 Presence of aortocoronary bypass graft
CPT/HCPCS: 78452; 84153; 93005; 96374; 96375; A9500; J0153

== ENCOUNTER → 2017-01-17 | Outpatient (CLI) | payer MEDICARE, MEDICAID ==
[~2017-01-17] VITALS: Ht 30.5 cm; Wt 0.5 kg
[~2017-01-17] MED LIST changes: -ADENOSINE 79 MG in GIVE UN-DILUTED 0 ML IV ONE; -ADENOSINE 90 MG/30 ML INJ IV ONE; +KETOROLAC TROMETH 60MG/2ML VIAL IM ONE
[2017-01-17 11:30] VITALS: BP 150/82
== END | disposition home or self-care (01) ==
LOC: CHF HDHVI 10:30
PROVIDERS: ATTEND Internal Medicine Cardiovascular Disease
DX: I50.9 Heart failure, unspecified (principal); I25.10 Atherosclerotic heart disease of native coronary artery without angina pectoris; E11.9 Type 2 diabetes mellitus without complications; M19.019 Primary osteoarthritis, unspecified shoulder
CPT/HCPCS: 82962; 93701; 96372; G0463; J1885

== ENCOUNTER → 2017-02-05 | Outpatient (CLI) | payer MEDICARE, MEDICAID ==
[2017-02-05 14:20] VITALS: BP 152/73
[2017-02-05 16:57] LABS: BUN/Creatinine Ratio 12.5; Calcium 8.6 mg/dL (8.5-10.1); Potassium 3.5 mmol/L (3.5-5.1)
[2017-02-05 17:06] LABS: B-Type Natriuretic Peptide 153.04 pg/mL (0-100)
[2017-02-05 17:10] LABS: Temperature: 23.9 C (20.0-25.0)
[2017-02-05 17:16] LABS: Basophils # (auto) 0 uL; Basophils % (auto) 0.6 % (0.0-2.0); Eosinophils # (auto) 0.3 uL; Hemoglobin 12.6 g/dL (13.5-17.5); Lymphocytes % (auto) 29.4 % (10.0-50.0); Mean Corpuscular Hemoglobin 31.5 pg (28.0-32.0); Mean Corpuscular Volume 92.6 fL (80.0-100.0); Mean Platelet Volume 7.8 fL (6.9-10.8); Monocytes # (auto) 0.7 uL; Monocytes % (auto) 9.8 % (0.0-12.0); Neutrophils # (auto) 3.8 uL; Neutrophils % (auto) 56.2 % (37.0-80.0); Nucleated Red Blood Cells % 0.2 %; Platelet Count (auto) 209 10^3/uL (140-450); Red Cell Distribution Width 13.8 % (11.8-14.3); White Blood Cell 6.7 10^3/uL (4.4-10.8)
== END | disposition home or self-care (01) ==
LOC: CHF HDHVI 13:48
PROVIDERS: ATTEND Internal Medicine Cardiovascular Disease
DX: I11.0 Hypertensive heart disease with heart failure (principal); I50.9 Heart failure, unspecified; D64.9 Anemia, unspecified
CPT/HCPCS: 36415; 80048; 83880; 85025; 96372; 96374; G0463; J1642

== ENCOUNTER → 2017-02-09 | Outpatient (CLI) | payer MEDICARE, MEDICAID ==
[~2017-02-09] VITALS: Ht 30.5 cm; Wt 98.4 kg
[~2017-02-09] MED LIST changes: +ALPR1TAB7 PO; +CHOL20007 OR; +CLOP75TA41 PO; +FURO20TA3 PO; -KETOROLAC TROMETH 60MG/2ML VIAL IM ONE; +LEVO100T8 PO; +LOSA50TA6 PO; +METF-370 PO; +NIAC500T71 PO; +POTA20TA53 PO; +QUET150T2 PO; +TAMS0.4C36 PO; +TEMA30CA PO; +TRAM50TA2 PO; +VORT10TA PO; +[UNRECOGNIZED DRUG - CODE] EX
[2017-02-09 10:20] VITALS: BP 129/69
[2017-02-09 11:00] VITALS: BP 141/74
[2017-02-09 13:07] LABS: Basophils # (auto) 0 uL; Basophils % (auto) 0.8 % (0.0-2.0); Eosinophils # (auto) 0.3 uL; Eosinophils % (auto) 5.9 % (0.0-7.0); Hematocrit 37.4 % (41.0-53.0); Hemoglobin 12.6 g/dL (13.5-17.5); Lymphocytes # (auto) 1.5 uL; Lymphocytes % (auto) 32.7 % (10.0-50.0); Mean Corpuscular Hemoglobin 31.2 pg (28.0-32.0); Mean Corpuscular Hgb Conc. 33.7 g/dL (32.0-36.0); Mean Corpuscular Volume 92.7 fL (80.0-100.0); Monocytes # (auto) 0.4 uL; Monocytes % (auto) 9.2 % (0.0-12.0); Neutrophils # (auto) 2.4 uL; Neutrophils % (auto) 51.4 % (37.0-80.0); Nucleated Red Blood Cells % 0.3 %; Platelet Count (auto) 197 10^3/uL (140-450); Red Blood Cells 4.04 10^6/uL (4.5-5.90); Red Cell Distribution Width 13.5 % (11.8-14.3); White Blood Cell 4.7 10^3/uL (4.4-10.8)
[2017-02-09 13:25] LABS: Calcium 8.8 mg/dL (8.5-10.1); Potassium 3.2 mmol/L (3.5-5.1)
[2017-02-09 13:47] LABS: INR 0.96 (0.9-1.15); Partial Thromboplastin Time 25.3 sec (22.64-33.71); Prothrombin Time 10.5 sec (9.37-12.3)
== END | disposition home or self-care (01) ==
LOC: Rad HDHVI 09:59
PROVIDERS: ATTEND Internal Medicine Cardiovascular Disease
DX: Z01.818 Encounter for other preprocedural examination (principal); I51.7 Cardiomegaly; I70.0 Atherosclerosis of aorta; R91.8 Other nonspecific abnormal finding of lung field; I10 Essential (primary) hypertension; D64.9 Anemia, unspecified; R79.1 Abnormal coagulation profile
CPT/HCPCS: 36415; 71020; 80048; 85025; 85610; 85730; 93005; 96374; G0463; J1642

== ENCOUNTER → 2017-02-15 | Outpatient (CLI) | payer MEDICARE, MEDICAID ==
[~2017-02-15] VITALS: Ht 30.5 cm; Wt 0.5 kg
[~2017-02-15] MED LIST changes: +CYANOCOBALAMIN (B-12) 1000 MCG/1 ML VIAL IM ONE; +CYANOCOBALAMIN (B-12) 1000 MCG/1 ML VIAL ONE
[2017-02-15 12:55] VITALS: BP 141/67
[2017-02-15 15:45] VITALS: BP 139/70
== END | disposition home or self-care (01) ==
LOC: CHF HDHVI 13:13
PROVIDERS: ATTEND Internal Medicine Cardiovascular Disease
DX: I50.9 Heart failure, unspecified (principal); R53.83 Other fatigue; E29.1 Testicular hypofunction
CPT/HCPCS: 96372; G0463; J3420

== ENCOUNTER → 2017-03-05 | Outpatient (CLI) | payer MEDICARE, MEDICAID ==
[~2017-03-05] MED LIST changes: -CYANOCOBALAMIN (B-12) 1000 MCG/1 ML VIAL IM ONE; -CYANOCOBALAMIN (B-12) 1000 MCG/1 ML VIAL ONE; +TESTOSTERONE CYPIONATE 200 MG/ML 1ML VIAL IM ONE
[2017-03-05 13:32] VITALS: BP 147/74
[2017-03-05 13:35] VITALS: BP 149/77
== END | disposition home or self-care (01) ==
LOC: CHF HDHVI 13:16
PROVIDERS: ATTEND Internal Medicine Cardiovascular Disease
DX: I50.9 Heart failure, unspecified (principal); E29.1 Testicular hypofunction
CPT/HCPCS: 96372; G0463; J1071

== ENCOUNTER → 2017-03-19 | Outpatient (CLI) | payer MEDICARE, MEDICAID ==
[2017-03-19 12:00] VITALS: BP 146/77
[2017-03-19 16:55] LABS: Potassium 3.6 mmol/L (3.5-5.1)
[2017-03-19 17:11] LABS: B-Type Natriuretic Peptide 106.25 pg/mL (0-100)
[2017-03-19 17:16] LABS: Temperature: 23.5 C (20.0-25.0)
== END | disposition home or self-care (01) ==
LOC: CHF HDHVI 11:03
PROVIDERS: ATTEND Internal Medicine Cardiovascular Disease
DX: I50.9 Heart failure, unspecified (principal); D64.9 Anemia, unspecified; E87.5 Hyperkalemia; I25.10 Atherosclerotic heart disease of native coronary artery without angina pectoris; R94.4 Abnormal results of kidney function studies; R53.81 Other malaise; Z79.899 Other long term (current) drug therapy
CPT/HCPCS: 36415; 82565; 83036; 83880; 84132; 84403; 84520; 93701; 96372; G0463; J1642

== ENCOUNTER → 2017-03-22 | Outpatient (CLI) | payer MEDICARE, MEDICAID ==
[~2017-03-22] MED LIST changes: +CYANOCOBALAMIN (B-12) 1000 MCG/1 ML VIAL ONE; +FUROSEMIDE INJECTION 10 ML ONE; +POTASSIUM CHL 10 Meq TABLET PO ONE; +POTASSIUM CHL 20 Meq TABLET PO ONE; -TESTOSTERONE CYPIONATE 200 MG/ML 1ML VIAL IM ONE
[2017-03-22 15:40] VITALS: BP 160/76
== END | disposition home or self-care (01) ==
LOC: CHF HDHVI 12:13
PROVIDERS: ATTEND Internal Medicine Cardiovascular Disease
DX: I50.9 Heart failure, unspecified (principal); R53.83 Other fatigue; E87.70 Fluid overload, unspecified
CPT/HCPCS: 96365; 96366; 96372; G0463; J1642; J1940; J3420

== ENCOUNTER → 2017-03-27 | Outpatient (CLI) | payer MEDICARE, MEDICAID ==
[~2017-03-27] MED LIST changes: -CYANOCOBALAMIN (B-12) 1000 MCG/1 ML VIAL ONE; +FUROSEMIDE INJECTION 100 MG in SODIUM CHL 0.9% 100 ML IV SCH; -POTASSIUM CHL 10 Meq TABLET PO ONE
[2017-03-27 11:00] VITALS: BP 132/64
[2017-03-27 11:30] VITALS: BP 137/68
[2017-03-27 12:00] VITALS: BP 129/67
[2017-03-27 12:21] LABS: Basophils # (auto) 0 uL; Basophils % (auto) 0.8 % (0.0-2.0); Eosinophils # (auto) 0.2 uL; Eosinophils % (auto) 3.7 % (0.0-7.0); Hematocrit 37.8 % (41.0-53.0); Hemoglobin 12.2 g/dL (13.5-17.5); Lymphocytes # (auto) 1.6 uL; Lymphocytes % (auto) 30.9 % (10.0-50.0); Mean Corpuscular Hemoglobin 28.6 pg (28.0-32.0); Mean Corpuscular Hgb Conc. 32.2 g/dL (32.0-36.0); Mean Corpuscular Volume 88.9 fL (80.0-100.0); Monocytes # (auto) 0.4 uL; Monocytes % (auto) 8.8 % (0.0-12.0); Neutrophils # (auto) 2.8 uL; Neutrophils % (auto) 55.8 % (37.0-80.0); Nucleated Red Blood Cells % 0.2 %; Platelet Count (auto) 218 10^3/uL (140-450); Red Blood Cells 4.25 10^6/uL (4.5-5.90); Red Cell Distribution Width 13.9 % (11.8-14.3)
[2017-03-27 12:30] VITALS: BP 142/75
[2017-03-27 12:31] LABS: BUN/Creatinine Ratio 10.6; Calcium 7.9 mg/dL (8.5-10.1); Magnesium 2.2 mg/dL (1.6-2.6); Potassium 3.6 mmol/L (3.5-5.1)
[2017-03-27 13:00] VITALS: BP 140/68
[2017-03-27 13:14] VITALS: BP 132/64
== END | disposition home or self-care (01) ==
LOC: CHF HDHVI 10:46
PROVIDERS: ATTEND Internal Medicine Cardiovascular Disease
DX: E83.42 Hypomagnesemia (principal); D64.9 Anemia, unspecified; I10 Essential (primary) hypertension
CPT/HCPCS: 36415; 80048; 83735; 85025; 96365; 96366; G0463; J1642; J1940

== ENCOUNTER → 2017-04-04 | Outpatient (CLI) | payer MEDICARE, MEDICAID ==
[~2017-04-04] VITALS: Ht 1 cm; Wt 100.2 kg
[~2017-04-04] MED LIST changes: -FUROSEMIDE INJECTION 100 MG in SODIUM CHL 0.9% 100 ML IV SCH; +POTASSIUM CHL 10 Meq TABLET PO ONE; -POTASSIUM CHL 20 Meq TABLET PO ONE; +cefTRIAXone 1GM/10ml IVPUSH 10 ML IV ONE
[2017-04-04 12:30] VITALS: BP 142/77
[2017-04-04 13:00] VITALS: BP 141/68
[2017-04-04 13:30] VITALS: BP 142/67
[2017-04-04 15:10] VITALS: BP 138/84
[2017-04-04 15:53] LABS: Basophils # (auto) 0 uL; Basophils % (auto) 0.4 % (0.0-2.0); Eosinophils # (auto) 0.2 uL; Eosinophils % (auto) 3.3 % (0.0-7.0); Hematocrit 34.7 % (41.0-53.0); Hemoglobin 11.5 g/dL (13.5-17.5); Lymphocytes # (auto) 1.2 uL; Lymphocytes % (auto) 20.7 % (10.0-50.0); Mean Corpuscular Hemoglobin 29.2 pg (28.0-32.0); Mean Corpuscular Hgb Conc. 33.3 g/dL (32.0-36.0); Mean Corpuscular Volume 87.7 fL (80.0-100.0); Monocytes # (auto) 0.6 uL; Monocytes % (auto) 9.6 % (0.0-12.0); Nucleated Red Blood Cells % 0.5 %; Platelet Count (auto) 225 10^3/uL (140-450); Red Blood Cells 3.96 10^6/uL (4.5-5.90); Red Cell Distribution Width 14.3 % (11.8-14.3)
[2017-04-04 16:01] LABS: BUN/Creatinine Ratio 10.3; Calcium 7.6 mg/dL (8.5-10.1); Magnesium 2.2 mg/dL (1.6-2.6); Potassium 3.5 mmol/L (3.5-5.1)
== END | disposition home or self-care (01) ==
LOC: CHF HDHVI 12:04
PROVIDERS: ATTEND Internal Medicine Cardiovascular Disease
DX: I10 Essential (primary) hypertension (principal); D64.9 Anemia, unspecified; E55.9 Vitamin D deficiency, unspecified; E03.9 Hypothyroidism, unspecified; I25.10 Atherosclerotic heart disease of native coronary artery without angina pectoris; Z95.1 Presence of aortocoronary bypass graft
CPT/HCPCS: 36415; 80048; 82306; 83735; 85025; 96365; 96366; 96372; G0463; J1642; J1940

== ENCOUNTER → 2017-04-20 | Outpatient (CLI) | payer MEDICARE, MEDICAID ==
[~2017-04-20] VITALS: Ht 30.5 cm; Wt 0.5 kg
[~2017-04-20] MED LIST changes: -FUROSEMIDE INJECTION 10 ML ONE; -POTASSIUM CHL 10 Meq TABLET PO ONE; +TESTOSTERONE CYPIONATE 200 MG/ML 1ML VIAL IM ONE; -cefTRIAXone 1GM/10ml IVPUSH 10 ML IV ONE
[2017-04-20 10:30] VITALS: BP 149/68
[2017-04-20 11:00] VITALS: BP 124/75
[2017-04-20 12:15] LABS: Basophils # (auto) 0 uL; Basophils % (auto) 0.8 % (0.0-2.0); Eosinophils # (auto) 0.3 uL; Eosinophils % (auto) 6.1 % (0.0-7.0); Hematocrit 36.8 % (41.0-53.0); Hemoglobin 11.9 g/dL (13.5-17.5); Lymphocytes # (auto) 1.4 uL; Lymphocytes % (auto) 27.4 % (10.0-50.0); Mean Corpuscular Hgb Conc. 32.4 g/dL (32.0-36.0); Mean Corpuscular Volume 86.4 fL (80.0-100.0); Monocytes # (auto) 0.4 uL; Monocytes % (auto) 7.7 % (0.0-12.0); Nucleated Red Blood Cells % 0.1 %; Platelet Count (auto) 223 10^3/uL (140-450); Red Blood Cells 4.26 10^6/uL (4.5-5.90); Red Cell Distribution Width 14.7 % (11.8-14.3); White Blood Cell 5.3 10^3/uL (4.4-10.8)
[2017-04-20 13:19] LABS: BUN/Creatinine Ratio 9.4; Calcium 7.8 mg/dL (8.5-10.1); Potassium 3.5 mmol/L (3.5-5.1)
== END | disposition home or self-care (01) ==
LOC: CHF HDHVI 10:32
PROVIDERS: ATTEND Internal Medicine Cardiovascular Disease
DX: D64.9 Anemia, unspecified (principal); I11.0 Hypertensive heart disease with heart failure; I50.9 Heart failure, unspecified; E29.1 Testicular hypofunction
CPT/HCPCS: 36415; 80048; 82962; 85025; 96372; G0463; J1642

== ENCOUNTER → 2017-05-04 | Outpatient (CLI) | payer MEDICARE, MEDICAID ==
[~2017-05-04] MED LIST changes: +ACETAMINOPHEN 500 MG TAB PO ONE; -TESTOSTERONE CYPIONATE 200 MG/ML 1ML VIAL IM ONE
[2017-05-04 12:20] VITALS: BP 136/72
== END | disposition home or self-care (01) ==
LOC: CHF HDHVI 11:37
PROVIDERS: ATTEND Internal Medicine Cardiovascular Disease
DX: E29.1 Testicular hypofunction (principal)
CPT/HCPCS: 82962; 96372; G0463

== ENCOUNTER → 2017-06-21 | Outpatient (CLI) | payer MEDICARE, MEDICAID ==
[~2017-06-21] MED LIST changes: -ACETAMINOPHEN 500 MG TAB PO ONE; +CYANOCOBALAMIN (B-12) 1000 MCG/1 ML VIAL IM ONE; +CYANOCOBALAMIN (B-12) 1000 MCG/1 ML VIAL ONE; +KETOROLAC TROMETH 60MG/2ML VIAL IM ONE
[2017-06-21 12:35] VITALS: BP 162/84
[2017-06-21 15:57] LABS: Basophils # (auto) 0 uL; Basophils % (auto) 0.3 % (0.0-2.0); Eosinophils # (auto) 0.2 uL; Eosinophils % (auto) 3.6 % (0.0-7.0); Hematocrit 42.2 % (41.0-53.0); Hemoglobin 13.9 g/dL (13.5-17.5); Lymphocytes # (auto) 1.6 uL; Lymphocytes % (auto) 23.8 % (10.0-50.0); Mean Corpuscular Hemoglobin 27.4 pg (28.0-32.0); Mean Corpuscular Volume 82.9 fL (80.0-100.0); Monocytes # (auto) 0.6 uL; Monocytes % (auto) 9.1 % (0.0-12.0); Neutrophils # (auto) 4.2 uL; Neutrophils % (auto) 63.2 % (37.0-80.0); Nucleated Red Blood Cells % 0.7 %; Platelet Count (auto) 217 10^3/uL (140-450); Red Blood Cells 5.09 10^6/uL (4.5-5.90); Red Cell Distribution Width 17.7 % (11.8-14.3); White Blood Cell 6.7 10^3/uL (4.4-10.8)
[2017-06-21 16:02] LABS: BUN/Creatinine Ratio 13.4; Potassium 3.8 mmol/L (3.5-5.1)
== END | disposition home or self-care (01) ==
LOC: CHF HDHVI 12:06
PROVIDERS: ATTEND Internal Medicine Cardiovascular Disease
DX: E29.1 Testicular hypofunction (principal); I10 Essential (primary) hypertension; D64.9 Anemia, unspecified; D51.9 Vitamin B12 deficiency anemia, unspecified
CPT/HCPCS: 36415; 80048; 82607; 84403; 85025; 96372; G0463; J1642; J1885; J3420

== ENCOUNTER → 2017-07-23 | Outpatient (CLI) | payer MEDICARE, MEDICAID ==
[~2017-07-23] MED LIST changes: -CYANOCOBALAMIN (B-12) 1000 MCG/1 ML VIAL IM ONE; -CYANOCOBALAMIN (B-12) 1000 MCG/1 ML VIAL ONE; -KETOROLAC TROMETH 60MG/2ML VIAL IM ONE
[2017-07-23 12:18] LABS: Basophils # (auto) 0 uL; Basophils % (auto) 0.6 % (0.0-2.0); Eosinophils # (auto) 0.3 uL; Eosinophils % (auto) 4.6 % (0.0-7.0); Hemoglobin 14.3 g/dL (13.5-17.5); Lymphocytes # (auto) 1.8 uL; Lymphocytes % (auto) 33.5 % (10.0-50.0); Mean Corpuscular Hemoglobin 28.3 pg (28.0-32.0); Mean Corpuscular Hgb Conc. 33.3 g/dL (32.0-36.0); Monocytes # (auto) 0.5 uL; Monocytes % (auto) 8.3 % (0.0-12.0); Neutrophils # (auto) 2.9 uL; Nucleated Red Blood Cells % 0.1 %; Platelet Count (auto) 234 10^3/uL (140-450); Red Blood Cells 5.06 10^6/uL (4.5-5.90); Red Cell Distribution Width 20.4 % (11.8-14.3); White Blood Cell 5.5 10^3/uL (4.4-10.8)
[2017-07-23 12:23] LABS: Urine Bacteria NONE SEEN /hpf (None Seen); Urine Blood Negative /uL (Negative); Urine Mucus FEW (None Seen); Urine Specific Gravity 1.023 (1.001-1.035); Urine WBC 1 /hpf (0 - 3)
[2017-07-23 12:41] LABS: Albumin 3.7 g/dL (3.4-5.0); BUN/Creatinine Ratio 12.4; Bilirubin, Total 0.9 mg/dL (0.2-1.0); Calcium 8.9 mg/dL (8.5-10.1); Potassium 3.9 mmol/L (3.5-5.1); Total Protein 8.1 g/dL (6.4-8.2)
[2017-07-23 13:06] LABS: Free T4 (Free Thyroxine) 1.12 ng/dL (0.89-1.76); Prostate Specific Antigen 0.69 ng/mL (0.0-4.0)
[2017-07-23 13:07] LABS: Folate (Folic Acid) 9.89 ng/mL (5.38-24)
== END | disposition home or self-care (01) ==
LOC: LAB 11:51
PROVIDERS: ATTEND Internal Medicine
DX: E11.9 Type 2 diabetes mellitus without complications (principal); I25.10 Atherosclerotic heart disease of native coronary artery without angina pectoris; F03.90 Unspecified dementia, unspecified severity, without behavioral disturbance, psychotic disturbance, mood disturbance, and anxiety; I10 Essential (primary) hypertension; E78.00 Pure hypercholesterolemia, unspecified; E78.5 Hyperlipidemia, unspecified; N40.1 Benign prostatic hyperplasia with lower urinary tract symptoms; R79.89 Other specified abnormal findings of blood chemistry; Z79.899 Other long term (current) drug therapy
CPT/HCPCS: 36415; 80053; 80061; 81001; 82043; 82607; 82746; 83036; 84153; 84439; 84443; 85025; 85652

== ENCOUNTER → 2017-09-06 | Outpatient (CLI) | payer MEDICARE, MEDICAID ==
[2017-09-06 09:11] LABS: Basophils # (auto) 0 uL; Basophils % (auto) 0.8 % (0.0-2.0); Eosinophils # (auto) 0.2 uL; Hematocrit 40.1 % (41.0-53.0); Hemoglobin 13.1 g/dL (13.5-17.5); Lymphocytes # (auto) 1.7 uL; Mean Corpuscular Hemoglobin 29.3 pg (28.0-32.0); Mean Corpuscular Hgb Conc. 32.7 g/dL (32.0-36.0); Mean Corpuscular Volume 89.7 fL (80.0-100.0); Monocytes # (auto) 0.5 uL; Monocytes % (auto) 9.8 % (0.0-12.0); Neutrophils # (auto) 2.6 uL; Neutrophils % (auto) 51.4 % (37.0-80.0); Platelet Count (auto) 214 10^3/uL (140-450); Red Blood Cells 4.47 10^6/uL (4.5-5.90); Red Cell Distribution Width 18.2 % (11.8-14.3); White Blood Cell 5.1 10^3/uL (4.4-10.8)
[2017-09-06 09:16] LABS: Urine Bacteria NONE SEEN /hpf (None Seen); Urine Blood Negative /uL (Negative); Urine Specific Gravity 1.022 (1.001-1.035); Urine WBC <1 /hpf (0 - 3)
[2017-09-06 09:55] LABS: Albumin 3.4 g/dL (3.4-5.0); BUN/Creatinine Ratio 17.8; Bilirubin, Direct 0.2 mg/dL (0-0.2); Bilirubin, Total 0.7 mg/dL (0.2-1.0); Calcium 8.5 mg/dL (8.5-10.1); Potassium 4.1 mmol/L (3.5-5.1); Total Protein 7.2 g/dL (6.4-8.2)
[2017-09-06 10:03] LABS: Free T4 (Free Thyroxine) 1.09 ng/dL (0.89-1.76)
== END | disposition home or self-care (01) ==
LOC: LAB 08:33
PROVIDERS: ATTEND Internal Medicine
DX: E11.9 Type 2 diabetes mellitus without complications (principal); I25.10 Atherosclerotic heart disease of native coronary artery without angina pectoris; E03.9 Hypothyroidism, unspecified; M19.90 Unspecified osteoarthritis, unspecified site; I10 Essential (primary) hypertension; E78.5 Hyperlipidemia, unspecified; Z95.1 Presence of aortocoronary bypass graft; Z79.899 Other long term (current) drug therapy
CPT/HCPCS: 36415; 80053; 80061; 81001; 82248; 82306; 82607; 83036; 84439; 84443; 85025

== ENCOUNTER → 2018-01-22 | Outpatient (CLI) | payer MEDICARE, MEDICAID ==
[~2018-01-22] MED LIST changes: +LOSA-46 PO; -LOSA50TA6 PO
[2018-01-22 10:50] LABS: Basophils # (auto) 0 uL; Basophils % (auto) 0.8 % (0.0-2.0); Eosinophils # (auto) 0.3 uL; Eosinophils % (auto) 6.2 % (0.0-7.0); Hemoglobin 14.1 g/dL (13.5-17.5); Lymphocytes # (auto) 1.5 uL; Lymphocytes % (auto) 36.4 % (10.0-50.0); Mean Corpuscular Hemoglobin 30.4 pg (28.0-32.0); Mean Corpuscular Hgb Conc. 33.5 g/dL (32.0-36.0); Mean Corpuscular Volume 90.7 fL (80.0-100.0); Monocytes # (auto) 0.3 uL; Monocytes % (auto) 8.2 % (0.0-12.0); Neutrophils % (auto) 48.4 % (37.0-80.0); Nucleated Red Blood Cells % 0.1 %; Platelet Count (auto) 217 10^3/uL (140-450); Red Blood Cells 4.64 10^6/uL (4.5-5.90); Red Cell Distribution Width 15.2 % (11.8-14.3); White Blood Cell 4.1 10^3/uL (4.4-10.8)
[2018-01-22 11:15] LABS: Albumin 3.3 g/dL (3.4-5.0); Calcium 8.6 mg/dL (8.5-10.1); Potassium 4.2 mmol/L (3.5-5.1)
[2018-01-22 11:18] LABS: BUN/Creatinine Ratio 9.5; Bilirubin, Total 0.6 mg/dL (0.2-1.0); Uric Acid 7.6 mg/dL (3.5-7.2)
== END | disposition home or self-care (01) ==
LOC: LAB 10:24
PROVIDERS: ATTEND Internal Medicine
DX: E11.22 Type 2 diabetes mellitus with diabetic chronic kidney disease (principal); I12.9 Hypertensive chronic kidney disease with stage 1 through stage 4 chronic kidney disease, or unspecified chronic kidney disease; N18.3 Chronic kidney disease, stage 3 (moderate)
CPT/HCPCS: 36415; 80053; 83036; 83721; 84439; 84443; 84550; 85025

== ENCOUNTER → 2018-03-07 | Outpatient (CLI) | payer MEDICARE, MEDICAID ==
[~2018-03-07] MED LIST changes: +CYANOCOBALAMIN (B-12) 1000 MCG/1 ML VIAL IM ONE; +CYANOCOBALAMIN (B-12) 1000 MCG/1 ML VIAL ONE
[2018-03-07 12:00] VITALS: BP 145/78
== END | disposition home or self-care (01) ==
LOC: CHF HDHVI 11:47
PROVIDERS: ATTEND Internal Medicine Cardiovascular Disease
DX: I13.0 Hypertensive heart and chronic kidney disease with heart failure and stage 1 through stage 4 chronic kidney disease, or unspecified chronic kidney disease (principal); E11.22 Type 2 diabetes mellitus with diabetic chronic kidney disease; I50.9 Heart failure, unspecified; N18.3 Chronic kidney disease, stage 3 (moderate); D63.1 Anemia in chronic kidney disease; I25.10 Atherosclerotic heart disease of native coronary artery without angina pectoris; R53.81 Other malaise; I70.0 Atherosclerosis of aorta; M19.019 Primary osteoarthritis, unspecified shoulder; G89.29 Other chronic pain; M54.5 Low back pain; E66.01 Morbid (severe) obesity due to excess calories; E84.9 Cystic fibrosis, unspecified; E78.00 Pure hypercholesterolemia, unspecified; E78.5 Hyperlipidemia, unspecified; E03.9 Hypothyroidism, unspecified; F03.90 Unspecified dementia, unspecified severity, without behavioral disturbance, psychotic disturbance, mood disturbance, and anxiety; Z95.1 Presence of aortocoronary bypass graft; Z79.899 Other long term (current) drug therapy
CPT/HCPCS: 96372; G0463; J1642; J3420; 96523

== ENCOUNTER → 2018-04-11 | Outpatient (CLI) | payer MEDICARE, MEDICAID ==
[~2018-04-11] MED LIST changes: -CYANOCOBALAMIN (B-12) 1000 MCG/1 ML VIAL IM ONE; -CYANOCOBALAMIN (B-12) 1000 MCG/1 ML VIAL ONE
[2018-04-11 13:27] LABS: Potassium 4.1 mmol/L (3.5-5.1)
[2018-04-11 13:40] LABS: Albumin 3.5 g/dL (3.4-5.0); BUN/Creatinine Ratio 15.1; Bilirubin, Total 0.6 mg/dL (0.2-1.0); Calcium 8.2 mg/dL (8.5-10.1); Total Protein 7.5 g/dL (6.4-8.2)
== END | disposition home or self-care (01) ==
LOC: LAB 10:16
PROVIDERS: ATTEND Internal Medicine
DX: E11.40 Type 2 diabetes mellitus with diabetic neuropathy, unspecified (principal); I10 Essential (primary) hypertension
CPT/HCPCS: 36415; 80053; 83036

== ENCOUNTER → 2018-05-27 | Outpatient (CLI) | payer MEDICARE, MEDICAID ==
[~2018-05-27] VITALS: Ht 1 cm; Wt 104.8 kg
[~2018-05-27] MED LIST changes: +CYANOCOBALAMIN (B-12) 1000 MCG/1 ML VIAL IM ONE; +CYANOCOBALAMIN (B-12) 1000 MCG/1 ML VIAL ONE; +FUROSEMIDE INJECTION 10 ML ONE; +FUROSEMIDE INJECTION 100 MG in SODIUM CHL 0.9% 100 ML IV SCH; +POTASSIUM CHL 10 Meq TABLET PO ONE; +POTASSIUM CHL 20 Meq TABLET PO ONE
--- NOTE | 2018-05-27 10:28 | NUR ---
CHF PT TO CHF CLINIC MD HILLS ORDERED LASIX DRIP
--- NOTE | 2018-05-27 11:27 | NUR ---
CHF Paulie Cath Insertion 20 gauge Paulie Cath inserted using sterile technique in the upper chest with occlusive dressing over lares needle. Patient tolerated procedure well. Ordered labs drawn and sent. See e-MAR for medications given during this visit. Clinic Provider Clinic Provider DR HILLS pt with new orders received and carried out. Lasix gtt started at {30}mg/hr per MD order.
--- NOTE | 2018-05-27 14:35 | NUR ---
Paulie Cath Removal Groves needle D/C'd after Heparin flush per protocol. See e-MAR for medications given during this visit. Sterile occlusive dressing to site. Patient tolerated procedure well. Site benign post infusion. UP TO VOID AGAIN. SHUFFLES STEPS AND NOTED TO HAVE LARGE URINARY INCONTINENCE OVER PANTS, ALL THE WAY TO THE FLOOR. IN ATTENDANCE.
[2018-05-27 14:44] VITALS: BP 164/86
--- NOTE | 2018-05-27 14:44 | NUR ---
CHF Paulie Cath Removal Groves needle D/C'd after Heparin flush per protocol. See e-MAR for medications given during this visit. Sterile occlusive dressing to site. Patient tolerated procedure well. Site benign post infusion. Discharge Instructions See e-MAR for any mediations given with this visit. Patient education given on disease process. Patient verbalized understanding. VITAMIN B12 1000MCG IM LEFT DELTOID Previous labs reviewed. Patient discharged in stable condition with after care instructions and follow up appointment.
[2018-05-27 16:25] LABS: BUN/Creatinine Ratio 13.8; Calcium 7.8 mg/dL (8.5-10.1); Potassium 4.1 mmol/L (3.5-5.1)
[2018-05-27 18:53] LABS: Basophils # (auto) 0 uL; Basophils % (auto) 0.7 % (0.0-2.0); Eosinophils # (auto) 0.2 uL; Eosinophils % (auto) 3.8 % (0.0-7.0); Hematocrit 40.9 % (41.0-53.0); Hemoglobin 13.4 g/dL (13.5-17.5); Lymphocytes # (auto) 1.3 uL; Lymphocytes % (auto) 23.3 % (10.0-50.0); Mean Corpuscular Hemoglobin 29.9 pg (28.0-32.0); Mean Corpuscular Hgb Conc. 32.7 g/dL (32.0-36.0); Mean Corpuscular Volume 91.3 fL (80.0-100.0); Monocytes # (auto) 0.4 uL; Monocytes % (auto) 7.8 % (0.0-12.0); Neutrophils # (auto) 3.7 uL; Neutrophils % (auto) 64.4 % (37.0-80.0); Nucleated Red Blood Cells % 0.2 %; Platelet Count (auto) 190 10^3/uL (140-450); Red Blood Cells 4.48 10^6/uL (4.5-5.90); Red Cell Distribution Width 15.5 % (11.8-14.3); White Blood Cell 5.7 10^3/uL (4.4-10.8)
== END | disposition home or self-care (01) ==
LOC: CHF HDHVI 10:36
PROVIDERS: ATTEND Internal Medicine
DX: I25.10 Atherosclerotic heart disease of native coronary artery without angina pectoris (principal); I13.0 Hypertensive heart and chronic kidney disease with heart failure and stage 1 through stage 4 chronic kidney disease, or unspecified chronic kidney disease; E11.22 Type 2 diabetes mellitus with diabetic chronic kidney disease; N18.3 Chronic kidney disease, stage 3 (moderate); I50.9 Heart failure, unspecified; E03.9 Hypothyroidism, unspecified; D64.9 Anemia, unspecified; E29.1 Testicular hypofunction; E55.9 Vitamin D deficiency, unspecified; I70.0 Atherosclerosis of aorta; E11.40 Type 2 diabetes mellitus with diabetic neuropathy, unspecified; E66.01 Morbid (severe) obesity due to excess calories; G89.29 Other chronic pain; M19.019 Primary osteoarthritis, unspecified shoulder; F03.90 Unspecified dementia, unspecified severity, without behavioral disturbance, psychotic disturbance, mood disturbance, and anxiety; Z79.899 Other long term (current) drug therapy; Z95.1 Presence of aortocoronary bypass graft; Z95.5 Presence of coronary angioplasty implant and graft
CPT/HCPCS: 36415; 80048; 82306; 83880; 84403; 85025; 96365; 96366; 96372; G0463; J1642; J1940; J3420

== ENCOUNTER → 2018-05-31 | Outpatient (CLI) | payer MEDICARE, MEDICAID ==
[~2018-05-31] MED LIST changes: -CYANOCOBALAMIN (B-12) 1000 MCG/1 ML VIAL IM ONE; -CYANOCOBALAMIN (B-12) 1000 MCG/1 ML VIAL ONE; -FUROSEMIDE INJECTION 10 ML ONE; -FUROSEMIDE INJECTION 100 MG in SODIUM CHL 0.9% 100 ML IV SCH; +KETOROLAC TROMETH 60MG/2ML VIAL IM ONE; -POTASSIUM CHL 10 Meq TABLET PO ONE; -POTASSIUM CHL 20 Meq TABLET PO ONE; +TESTOSTERONE CYPIONATE 200 MG/ML 1ML VIAL IM ONE
[2018-05-31 14:00] VITALS: BP 164/80
--- NOTE | 2018-05-31 14:20 | NUR ---
EKG DONE AND REVIEWED FOR COMPLAINT OF 'CHEST PRESSURE'. NO DISTRESS NOTED. AFFECT CALM AND STILL AND FACE APPEARS RELAXED. IN ATTENDANCE. EKG REVIEWED BY GIANCARLO DORAN RN. TEACHING IN PROGRESS REGARDING DIET AND ACTIVITY AND NEED FOR WEIGHT LOSS.
--- NOTE | 2018-05-31 14:23 | NUR ---
USE OF E BUSINESS PROJECT MANAGER FOR TEACHING
[2018-05-31 14:54] VITALS: BP 175/83
--- NOTE | 2018-05-31 14:54 | NUR ---
CHF PT UNDERSTOOD INSTRUCTIONS AND REPEATED BACK INSTRUCTIONS WITH USE OF WOMEN'S SWIM COACH. ALSO PARTICIPATED IN EDUCATION. VERBALIZED UNDERSTANDING. Discharge Instructions See e-MAR for any mediations given with this visit. Patient education given on disease process. Patient verbalized understanding. Previous labs reviewed. Patient discharged in stable condition with after care instructions . MEDICATION ADMINISTRATION TESTOSTERONE 200 MG IM TO LEFT GLUT AT 1450 TORADOL 60 MG IM TO TO RIGHT GLUT AT 1448
== END | disposition home or self-care (01) ==
LOC: CHF HDHVI 14:03
PROVIDERS: ATTEND Internal Medicine
DX: E29.1 Testicular hypofunction (principal); M54.9 Dorsalgia, unspecified; G89.29 Other chronic pain; I25.10 Atherosclerotic heart disease of native coronary artery without angina pectoris; I13.0 Hypertensive heart and chronic kidney disease with heart failure and stage 1 through stage 4 chronic kidney disease, or unspecified chronic kidney disease; E11.22 Type 2 diabetes mellitus with diabetic chronic kidney disease; N18.3 Chronic kidney disease, stage 3 (moderate); I50.9 Heart failure, unspecified; I70.0 Atherosclerosis of aorta; E03.9 Hypothyroidism, unspecified; E66.01 Morbid (severe) obesity due to excess calories; E11.40 Type 2 diabetes mellitus with diabetic neuropathy, unspecified; M19.019 Primary osteoarthritis, unspecified shoulder; Z79.899 Other long term (current) drug therapy; Z95.1 Presence of aortocoronary bypass graft
CPT/HCPCS: 82962; 93005; 96372; G0463; J1071; J1885

== ENCOUNTER → 2018-06-03 | Outpatient (CLI) | payer MEDICARE, MEDICAID ==
[~2018-06-03] MED LIST changes: +FUROSEMIDE INJECTION 10 ML ONE; +FUROSEMIDE INJECTION 100 MG in D5W 5% 90 ML IV SCH; -KETOROLAC TROMETH 60MG/2ML VIAL IM ONE; -TESTOSTERONE CYPIONATE 200 MG/ML 1ML VIAL IM ONE
--- NOTE | 2018-06-03 11:55 | NUR ---
CHF PT ARRIVAL AT CHF CLINIC FOR LASIX DRIP THERAPY . PT ALERT AND ORIENTED , WALKS SLOW , V/S OBTAINED PLAN OF CARE DISCUSSED, PT VERBALIZED UNDERSTANDING
--- NOTE | 2018-06-03 12:15 | NUR ---
Paulie Cath Insertion [20] gauge Paulie Cath inserted using sterile technique in the [R] upper chest with occlusive dressing over lares needle. Patient tolerated procedure well. Ordered labs drawn and sent. See e-MAR for medications given during this visit.
[2018-06-03 12:45] VITALS: BP 156/90
[2018-06-03 13:00] VITALS: BP 182/89
[2018-06-03 13:15] VITALS: BP 156/93
[2018-06-03 15:15] VITALS: BP 165/90
--- NOTE | 2018-06-03 15:30 | NUR ---
Paulie Cath Removal Groves needle D/C'd after Heparin flush per protocol. See e-MAR for medications given during this visit. Sterile occlusive dressing to site. Patient tolerated procedure well. Site benign post infusion.
[2018-06-03 15:44] VITALS: BP 163/93
--- NOTE | 2018-06-03 15:45 | NUR ---
Discharge Instructions See e-MAR for any mediations given with this visit. Patient education given on disease process. Patient verbalized understanding. Previous labs reviewed. Patient discharged in stable condition with after care instructions and follow up appointment. MEDICATIONS GIVEN START TIME 1215 LASIX DRIP 30MG/HR X 3 HOURS STOP TIME 1530
== END | disposition home or self-care (01) ==
LOC: CHF HDHVI 11:47
PROVIDERS: ATTEND Internal Medicine Cardiovascular Disease
DX: I13.0 Hypertensive heart and chronic kidney disease with heart failure and stage 1 through stage 4 chronic kidney disease, or unspecified chronic kidney disease (principal); E11.22 Type 2 diabetes mellitus with diabetic chronic kidney disease; N18.3 Chronic kidney disease, stage 3 (moderate); I50.9 Heart failure, unspecified; I25.10 Atherosclerotic heart disease of native coronary artery without angina pectoris; E11.40 Type 2 diabetes mellitus with diabetic neuropathy, unspecified; E78.5 Hyperlipidemia, unspecified; E03.9 Hypothyroidism, unspecified; E78.00 Pure hypercholesterolemia, unspecified; M19.019 Primary osteoarthritis, unspecified shoulder; E66.01 Morbid (severe) obesity due to excess calories; G89.29 Other chronic pain; F03.90 Unspecified dementia, unspecified severity, without behavioral disturbance, psychotic disturbance, mood disturbance, and anxiety; Z95.5 Presence of coronary angioplasty implant and graft; Z79.899 Other long term (current) drug therapy; Z95.1 Presence of aortocoronary bypass graft
CPT/HCPCS: 96365; 96366; G0463; J1642; J1940; J7060

== ENCOUNTER → 2018-06-07 | Outpatient (CLI) | payer MEDICARE, MEDICAID ==
[~2018-06-07] MED LIST changes: +FUROSEMIDE 20 MG/2 ML VIAL IV ONE; +FUROSEMIDE 20 MG/2 ML VIAL ONE; +FUROSEMIDE 40 MG/4 ML VIAL ONE; -FUROSEMIDE INJECTION 10 ML ONE; -FUROSEMIDE INJECTION 100 MG in D5W 5% 90 ML IV SCH; +POTASSIUM CHL 10 Meq TABLET PO ONE
[2018-06-07 11:40] VITALS: BP 132/76
--- NOTE | 2018-06-07 11:40 | NUR ---
CHF CLINIC Discharge Instructions See e-MAR for any mediations given with this visit. Patient education given on disease process. Patient verbalized understanding. Previous labs reviewed. Patient discharged in stable condition with after care instructions and follow up appointment ON SUNDAY. NOTE LASIX IVP ADMIN BY SANDRA SPANGLER KDUR ADMIN BY SANDRA SPANGLER HEPARIN ADMIN BY SANDRA SPANGLER PT OWN MEDICATION TRAJMEGHANN ADMIN R ABD SUBQ BY SANDRA SPANGLER Addendum: 06/07/18 at 1340 by Sandra Rodarte RN RN PATIENT OWN MEDICATION IS TRULICTY NOT JUAN
== END | disposition home or self-care (01) ==
LOC: CHF HDHVI 11:08
PROVIDERS: ATTEND Internal Medicine
DX: I13.0 Hypertensive heart and chronic kidney disease with heart failure and stage 1 through stage 4 chronic kidney disease, or unspecified chronic kidney disease (principal); E11.22 Type 2 diabetes mellitus with diabetic chronic kidney disease; I50.9 Heart failure, unspecified; N18.3 Chronic kidney disease, stage 3 (moderate); I25.10 Atherosclerotic heart disease of native coronary artery without angina pectoris; E78.5 Hyperlipidemia, unspecified; E03.9 Hypothyroidism, unspecified; E66.01 Morbid (severe) obesity due to excess calories; E11.40 Type 2 diabetes mellitus with diabetic neuropathy, unspecified; G89.29 Other chronic pain; M19.019 Primary osteoarthritis, unspecified shoulder; E78.00 Pure hypercholesterolemia, unspecified; F03.90 Unspecified dementia, unspecified severity, without behavioral disturbance, psychotic disturbance, mood disturbance, and anxiety; Z95.1 Presence of aortocoronary bypass graft; Z79.899 Other long term (current) drug therapy; Z95.5 Presence of coronary angioplasty implant and graft
CPT/HCPCS: 96372; 96374; G0463; J1642; J1940

== ENCOUNTER → 2018-06-10 | Outpatient (CLI) | payer MEDICARE, MEDICAID ==
[~2018-06-10] MED LIST changes: +FUROSEMIDE 100 MG/10ML VIAL IV ONE; -FUROSEMIDE 20 MG/2 ML VIAL IV ONE; -FUROSEMIDE 20 MG/2 ML VIAL ONE; -FUROSEMIDE 40 MG/4 ML VIAL ONE; +FUROSEMIDE INJECTION 0 ML ONE; -POTASSIUM CHL 10 Meq TABLET PO ONE; +SODIUM CHLORIDE 0.9% 100 ML IV ONE
[2018-06-10 11:15] VITALS: BP 154/67
--- NOTE | 2018-06-10 11:15 | NUR ---
CHF PT TO CHF CLINIC FOR FOLLOW UP AND LASIX DRIP THERAPY, V/S OBTAINED PT ALERT AND OREINTED 0 DISTRESS
--- NOTE | 2018-06-10 11:15 | NUR ---
Paulie Cath Insertion 20 gauge Paulie Cath inserted using sterile technique in the upper chest with occlusive dressing over lares needle. Patient tolerated procedure well. Ordered labs drawn and sent. See e-MAR for medications given during this visit. LABS DRAWN CMP,, MG, CBC
[2018-06-10 12:00] VITALS: BP 145/74
[2018-06-10 13:45] VITALS: BP 139/75
[2018-06-10 14:00] VITALS: BP 136/74
[2018-06-10 14:28] VITALS: BP 146/77
--- NOTE | 2018-06-10 14:39 | NUR ---
Discharge Instructions See e-MAR for any mediations given with this visit. Patient education given on disease process. Patient verbalized understanding. Previous labs reviewed. Patient discharged in stable condition with after care instructions and follow up appointment. MEDICATIONS @1115 LASIX DRIP 30MG/HR X3 @ 1428 LASIX STOPPED @ 1429 hEPARING 500 UNITS IV X 1
[2018-06-10 16:17] LABS: BUN/Creatinine Ratio 9.2; Potassium 4.1 mmol/L (3.5-5.1)
[2018-06-10 16:59] LABS: Basophils # (auto) 0 uL; Basophils % (auto) 0.3 % (0.0-2.0); Eosinophils # (auto) 0.3 uL; Hematocrit 39.9 % (41.0-53.0); Hemoglobin 13.2 g/dL (13.5-17.5); Lymphocytes # (auto) 1.4 uL; Lymphocytes % (auto) 30.1 % (10.0-50.0); Mean Corpuscular Hemoglobin 30.7 pg (28.0-32.0); Mean Corpuscular Hgb Conc. 33.1 g/dL (32.0-36.0); Mean Corpuscular Volume 92.8 fL (80.0-100.0); Monocytes # (auto) 0.3 uL; Neutrophils # (auto) 2.6 uL; Neutrophils % (auto) 56.6 % (37.0-80.0); Nucleated Red Blood Cells % 0.8 %; Platelet Count (auto) 179 10^3/uL (140-450); Red Blood Cells 4.29 10^6/uL (4.5-5.90); Red Cell Distribution Width 16.2 % (11.8-14.3); White Blood Cell 4.7 10^3/uL (4.4-10.8)
== END | disposition home or self-care (01) ==
LOC: CHF HDHVI 10:54
PROVIDERS: ATTEND Internal Medicine Cardiovascular Disease
DX: I13.0 Hypertensive heart and chronic kidney disease with heart failure and stage 1 through stage 4 chronic kidney disease, or unspecified chronic kidney disease (principal); E11.22 Type 2 diabetes mellitus with diabetic chronic kidney disease; N18.3 Chronic kidney disease, stage 3 (moderate); I50.9 Heart failure, unspecified; E83.40 Disorders of magnesium metabolism, unspecified; I25.10 Atherosclerotic heart disease of native coronary artery without angina pectoris; D64.9 Anemia, unspecified; E66.01 Morbid (severe) obesity due to excess calories; E11.40 Type 2 diabetes mellitus with diabetic neuropathy, unspecified; F03.90 Unspecified dementia, unspecified severity, without behavioral disturbance, psychotic disturbance, mood disturbance, and anxiety; E78.5 Hyperlipidemia, unspecified; E03.9 Hypothyroidism, unspecified; G89.29 Other chronic pain; E78.00 Pure hypercholesterolemia, unspecified; M19.019 Primary osteoarthritis, unspecified shoulder; Z79.899 Other long term (current) drug therapy; Z95.1 Presence of aortocoronary bypass graft; Z95.5 Presence of coronary angioplasty implant and graft
CPT/HCPCS: 36415; 80048; 83735; 85025; 96365; 96366; G0463; J1642; J1940

== ENCOUNTER → 2018-06-14 | Outpatient (CLI) | payer MEDICARE, MEDICAID ==
[2018-06-14] VITALS (8 sets, daily range): BP systolic 130–158; BP diastolic 64–87
[~2018-06-14] MED LIST changes: -FUROSEMIDE INJECTION 0 ML ONE; +FUROSEMIDE INJECTION 10 ML ONE; +POTASSIUM CHL 10 Meq TABLET PO ONE; -SODIUM CHLORIDE 0.9% 100 ML IV ONE; +SODIUM CHLORIDE 0.9% 90 ML IV ONE
--- NOTE | 2018-06-14 09:20 | NUR ---
Paulie Cath Insertion 20 gauge Paulie Cath inserted using sterile technique in the R upper chest with occlusive dressing over lares needle. Patient tolerated procedure well. Ordered labs drawn and sent. See e-MAR for medications given during this visit.
--- NOTE | 2018-06-14 12:54 | NUR ---
CHF CLINIC Discharge Instructions See e-MAR for any mediations given with this visit. Patient education given on disease process. Patient verbalized understanding. Previous labs reviewed. Patient discharged in stable condition with after care instructions and follow up appointment. NOTE LASIX [id number] ADMIN BY DULCE SPANGLER POTASSIUM PO ADMIN BY DULCE SPANGLER HEPARIN ADMIN BY DULCE SPANGLER
== END | disposition home or self-care (01) ==
LOC: CHF HDHVI 09:22
PROVIDERS: ATTEND Internal Medicine Cardiovascular Disease
DX: I13.0 Hypertensive heart and chronic kidney disease with heart failure and stage 1 through stage 4 chronic kidney disease, or unspecified chronic kidney disease (principal); E11.22 Type 2 diabetes mellitus with diabetic chronic kidney disease; I50.9 Heart failure, unspecified; N18.3 Chronic kidney disease, stage 3 (moderate); I25.10 Atherosclerotic heart disease of native coronary artery without angina pectoris; G89.29 Other chronic pain; E78.5 Hyperlipidemia, unspecified; E03.9 Hypothyroidism, unspecified; E66.01 Morbid (severe) obesity due to excess calories; M19.019 Primary osteoarthritis, unspecified shoulder; F03.90 Unspecified dementia, unspecified severity, without behavioral disturbance, psychotic disturbance, mood disturbance, and anxiety; E78.00 Pure hypercholesterolemia, unspecified; E66.9 Obesity, unspecified; Z79.899 Other long term (current) drug therapy; Z95.1 Presence of aortocoronary bypass graft; Z95.5 Presence of coronary angioplasty implant and graft
CPT/HCPCS: 96365; 96366; G0463; J1642; J1940

== ENCOUNTER → 2018-06-17 | Outpatient (CLI) | payer MEDICARE, MEDICAID ==
[2018-06-17] VITALS (8 sets, daily range): BP systolic 136–168; BP diastolic 62–84
[~2018-06-17] MED LIST changes: -FUROSEMIDE 100 MG/10ML VIAL IV ONE; +FUROSEMIDE INJECTION 100 MG in SODIUM CHL 0.9% 100 ML IV SCH; +POTASSIUM CHL 20 Meq TABLET PO ONE; -SODIUM CHLORIDE 0.9% 90 ML IV ONE; +TESTOSTERONE CYPIONATE 200 MG/ML 1ML VIAL IM ONE
--- NOTE | 2018-06-17 12:58 | NUR ---
CHF PT ARRIVED AT CLINIC FOR LASIX DRIP THERAPY. A/O X 3 , V/S OBTAINED 0 DISTRESS
--- NOTE | 2018-06-17 13:10 | NUR ---
Paulie Cath Insertion 20 gauge Paulie Cath inserted using sterile technique in the upper chest with occlusive dressing over lares needle. Patient tolerated procedure well. Ordered labs drawn and sent. See e-MAR for medications given during this visit.
[2018-06-17 16:01] LABS: Basophils # (auto) 0 uL; Basophils % (auto) 0.4 % (0.0-2.0); Eosinophils # (auto) 0.3 uL; Eosinophils % (auto) 5.5 % (0.0-7.0); Hematocrit 42.1 % (41.0-53.0); Hemoglobin 13.7 g/dL (13.5-17.5); Lymphocytes # (auto) 1.5 uL; Lymphocytes % (auto) 27.6 % (10.0-50.0); Mean Corpuscular Hemoglobin 29.6 pg (28.0-32.0); Mean Corpuscular Hgb Conc. 32.4 g/dL (32.0-36.0); Mean Corpuscular Volume 91.3 fL (80.0-100.0); Monocytes # (auto) 0.5 uL; Monocytes % (auto) 8.7 % (0.0-12.0); Neutrophils # (auto) 3.1 uL; Neutrophils % (auto) 57.8 % (37.0-80.0); Nucleated Red Blood Cells % 0.2 %; Platelet Count (auto) 215 10^3/uL (140-450); Red Blood Cells 4.61 10^6/uL (4.5-5.90); Red Cell Distribution Width 15.6 % (11.8-14.3); White Blood Cell 5.3 10^3/uL (4.4-10.8)
[2018-06-17 16:14] LABS: BUN/Creatinine Ratio 11.9; Calcium 8.6 mg/dL (8.5-10.1); Potassium 3.8 mmol/L (3.5-5.1)
--- NOTE | 2018-06-17 16:25 | NUR ---
Discharge Instructions See e-MAR for any mediations given with this visit. Patient education given on disease process. Patient verbalized understanding. Previous labs reviewed. Patient discharged in stable condition with after care instructions and follow up appointment. MEDICATIONS 1327 START TIME LASIX DRIP 100MG/100ML STOP TIME 1620 TESTOSTERONE 200 MG IM LOT [id number] EXP 03/28 HEPARIN 500 UNITS MIV X BILL CATH POTASSIUM 30 MEQ PO X 1
== END | disposition home or self-care (01) ==
LOC: CHF HDHVI 13:03
PROVIDERS: ATTEND Internal Medicine Cardiovascular Disease
DX: I13.0 Hypertensive heart and chronic kidney disease with heart failure and stage 1 through stage 4 chronic kidney disease, or unspecified chronic kidney disease (principal); E11.22 Type 2 diabetes mellitus with diabetic chronic kidney disease; I50.9 Heart failure, unspecified; N18.3 Chronic kidney disease, stage 3 (moderate); D64.9 Anemia, unspecified; I25.10 Atherosclerotic heart disease of native coronary artery without angina pectoris; E29.1 Testicular hypofunction; E03.9 Hypothyroidism, unspecified; E66.01 Morbid (severe) obesity due to excess calories; E11.40 Type 2 diabetes mellitus with diabetic neuropathy, unspecified; M19.019 Primary osteoarthritis, unspecified shoulder; F03.90 Unspecified dementia, unspecified severity, without behavioral disturbance, psychotic disturbance, mood disturbance, and anxiety; G89.29 Other chronic pain; Z79.899 Other long term (current) drug therapy; Z95.5 Presence of coronary angioplasty implant and graft; Z95.1 Presence of aortocoronary bypass graft
CPT/HCPCS: 36415; 80048; 85025; 96365; 96366; 96372; G0463; J1071; J1642; J1940

== ENCOUNTER → 2018-06-21 | Outpatient (CLI) | payer MEDICARE, MEDICAID ==
[~2018-06-21] MED LIST changes: +FUROSEMIDE 20 MG/2 ML VIAL IV ONE; +FUROSEMIDE 20 MG/2 ML VIAL ONE; +FUROSEMIDE 40 MG/4 ML VIAL ONE; -FUROSEMIDE INJECTION 10 ML ONE; -FUROSEMIDE INJECTION 100 MG in SODIUM CHL 0.9% 100 ML IV SCH; -POTASSIUM CHL 20 Meq TABLET PO ONE; -TESTOSTERONE CYPIONATE 200 MG/ML 1ML VIAL IM ONE
[2018-06-21 11:45] VITALS: BP 158/75
--- NOTE | 2018-06-21 11:45 | NUR ---
CHF CLINIC Discharge Instructions See e-MAR for any mediations given with this visit. Patient education given on disease process. Patient verbalized understanding. Previous labs reviewed. Patient discharged in stable condition with after care instructions and follow up appointment. NOTE LASIX IVP ADMIN BY DULCE SPANGLER. HEPARIN ADMIN BY DULCE SPANGLER. POTASSIUM PO ADMIN BY DULCE SPANGLER.
== END | disposition home or self-care (01) ==
LOC: CHF HDHVI 11:20
PROVIDERS: ATTEND Internal Medicine Cardiovascular Disease
DX: I13.0 Hypertensive heart and chronic kidney disease with heart failure and stage 1 through stage 4 chronic kidney disease, or unspecified chronic kidney disease (principal); E11.22 Type 2 diabetes mellitus with diabetic chronic kidney disease; I50.9 Heart failure, unspecified; N18.3 Chronic kidney disease, stage 3 (moderate); R60.9 Edema, unspecified; I25.10 Atherosclerotic heart disease of native coronary artery without angina pectoris; E11.40 Type 2 diabetes mellitus with diabetic neuropathy, unspecified; M19.019 Primary osteoarthritis, unspecified shoulder; F03.90 Unspecified dementia, unspecified severity, without behavioral disturbance, psychotic disturbance, mood disturbance, and anxiety; E66.01 Morbid (severe) obesity due to excess calories; E78.00 Pure hypercholesterolemia, unspecified; E78.5 Hyperlipidemia, unspecified; E03.9 Hypothyroidism, unspecified; G89.29 Other chronic pain; Z79.899 Other long term (current) drug therapy; Z95.1 Presence of aortocoronary bypass graft; Z95.5 Presence of coronary angioplasty implant and graft
CPT/HCPCS: 96374; G0463; J1642; J1940

== ENCOUNTER → 2018-06-26 | Outpatient (CLI) | payer MEDICARE, MEDICAID ==
[~2018-06-26] MED LIST changes: +FUROSEMIDE 100 MG/10ML VIAL IV ONE; -FUROSEMIDE 20 MG/2 ML VIAL IV ONE; -FUROSEMIDE 20 MG/2 ML VIAL ONE; -FUROSEMIDE 40 MG/4 ML VIAL ONE; -POTASSIUM CHL 10 Meq TABLET PO ONE; +SODIUM CHLORIDE 0.9% 90 ML IV ONE
[2018-06-26 12:00] VITALS: BP 133/67
[2018-06-26 12:30] VITALS: BP 128/72
[2018-06-26 13:00] VITALS: BP 150/79
[2018-06-26 13:30] VITALS: BP 146/74
[2018-06-26 14:00] VITALS: BP 151/77
[2018-06-26 15:10] VITALS: BP 150/87
--- NOTE | 2018-06-26 15:10 | NUR ---
CHF CLINIC Discharge Instructions See e-MAR for any mediations given with this visit. Patient education given on disease process. Patient verbalized understanding. Previous labs reviewed. Patient discharged in stable condition with after care instructions and follow up appointment. NOTE LASIX INFUSION [id number] ADMIN BY EPIFANIO SPANGLER. HEPARIN ADMIN BY DULCE SPANGLER.
[2018-06-26 16:06] LABS: Basophils # (auto) 0 uL; Basophils % (auto) 0.6 % (0.0-2.0); Eosinophils # (auto) 0.3 uL; Hematocrit 39.9 % (41.0-53.0); Lymphocytes # (auto) 1.4 uL; Lymphocytes % (auto) 28.4 % (10.0-50.0); Mean Corpuscular Hemoglobin 29.6 pg (28.0-32.0); Mean Corpuscular Hgb Conc. 32.5 g/dL (32.0-36.0); Mean Corpuscular Volume 90.9 fL (80.0-100.0); Monocytes # (auto) 0.4 uL; Monocytes % (auto) 8.6 % (0.0-12.0); Neutrophils # (auto) 2.9 uL; Neutrophils % (auto) 57.4 % (37.0-80.0); Nucleated Red Blood Cells % 0.8 %; Platelet Count (auto) 204 10^3/uL (140-450); Red Blood Cells 4.39 10^6/uL (4.5-5.90); Red Cell Distribution Width 15.5 % (11.8-14.3)
[2018-06-26 16:15] LABS: Potassium 3.6 mmol/L (3.5-5.1)
== END | disposition home or self-care (01) ==
LOC: CHF HDHVI 11:24
PROVIDERS: ATTEND Internal Medicine
DX: I13.0 Hypertensive heart and chronic kidney disease with heart failure and stage 1 through stage 4 chronic kidney disease, or unspecified chronic kidney disease (principal); E11.22 Type 2 diabetes mellitus with diabetic chronic kidney disease; N18.3 Chronic kidney disease, stage 3 (moderate); I50.9 Heart failure, unspecified; D64.9 Anemia, unspecified; R94.4 Abnormal results of kidney function studies; E87.5 Hyperkalemia; I25.10 Atherosclerotic heart disease of native coronary artery without angina pectoris; E78.5 Hyperlipidemia, unspecified; E03.9 Hypothyroidism, unspecified; E66.01 Morbid (severe) obesity due to excess calories; G89.29 Other chronic pain; M19.019 Primary osteoarthritis, unspecified shoulder; E78.00 Pure hypercholesterolemia, unspecified; E11.40 Type 2 diabetes mellitus with diabetic neuropathy, unspecified; F03.90 Unspecified dementia, unspecified severity, without behavioral disturbance, psychotic disturbance, mood disturbance, and anxiety; Z95.5 Presence of coronary angioplasty implant and graft; Z95.1 Presence of aortocoronary bypass graft
CPT/HCPCS: 36415; 82565; 84132; 84520; 85025; 96365; 96366; G0463; J1642; J1940

== ENCOUNTER → 2018-07-01 | Outpatient (CLI) | payer MEDICARE, MEDICAID ==
[~2018-07-01] MED LIST changes: -FUROSEMIDE 100 MG/10ML VIAL IV ONE; +FUROSEMIDE INJECTION 10 ML ONE; +FUROSEMIDE INJECTION 100 MG in SODIUM CHL 0.9% 100 ML IV SCH; +POTASSIUM CHL 10 Meq TABLET PO ONE; +POTASSIUM CHL 20 Meq TABLET PO ONE; -SODIUM CHLORIDE 0.9% 90 ML IV ONE
--- NOTE | 2018-07-01 10:50 | NUR ---
CHF CLINIC--ARRIVAL NOTE PT IS ALERT ORIENTED X4, ARRIVED TO CHF CLINIC FOR LASIX DRIP, DENIES CHEST PAIN 0/10, PRE SET OF VITAL SIGS AND BODY WEIGHT ARE TAKEN AND RECORDED.
--- NOTE | 2018-07-01 11:15 | NUR ---
BILL CATH PT HAS A PORT CATH RT UPPER CHEST, BILL CATH ACCESSED BY USING ASEPTIC TECHNIQUE, GOOD BLOOD FLOW FIRST ATTEMPT, PATIENT TOLERATED WELL. BLOOD SAMPLE SENT TO LAB. PATIENT TOLERATED WELL.
[2018-07-01 11:25] VITALS: BP 140/68
[2018-07-01 12:00] VITALS: BP 140/73
[2018-07-01 13:00] VITALS: BP 138/64
[2018-07-01 13:30] VITALS: BP 144/69
[2018-07-01 14:00] VITALS: BP 126/73
[2018-07-01 14:52] VITALS: BP 154/79
--- NOTE | 2018-07-01 14:52 | NUR ---
Discharge Instructions See e-MAR for any mediations given with this visit. Patient education given on disease process. Patient verbalized understanding. Previous labs reviewed. Patient discharged in stable condition with after care instructions and follow up appointment. MEDICATIONS 1121 START TIME LASIX DRIP 1440 STOP TIME LASIX DRIP 1445 HEAPARIN 500 UNITS IVP X 1
[2018-07-01 16:09] LABS: Basophils # (auto) 0 uL; Basophils % (auto) 0.5 % (0.0-2.0); Eosinophils # (auto) 0.3 uL; Hematocrit 39.6 % (41.0-53.0); Hemoglobin 13.1 g/dL (13.5-17.5); Lymphocytes # (auto) 1.2 uL; Lymphocytes % (auto) 23.8 % (10.0-50.0); Mean Corpuscular Hemoglobin 29.8 pg (28.0-32.0); Mean Corpuscular Hgb Conc. 33.1 g/dL (32.0-36.0); Mean Corpuscular Volume 90.1 fL (80.0-100.0); Monocytes # (auto) 0.5 uL; Monocytes % (auto) 9.4 % (0.0-12.0); Neutrophils % (auto) 60.3 % (37.0-80.0); Nucleated Red Blood Cells % 1.4 %; Platelet Count (auto) 195 10^3/uL (140-450); Red Cell Distribution Width 15.1 % (11.8-14.3)
[2018-07-01 16:20] LABS: BUN/Creatinine Ratio 7.4; Calcium 8.4 mg/dL (8.5-10.1); Magnesium 2.5 mg/dL (1.6-2.6); Potassium 3.4 mmol/L (3.5-5.1)
== END | disposition home or self-care (01) ==
LOC: CHF HDHVI 10:43
PROVIDERS: ATTEND Internal Medicine Cardiovascular Disease
DX: I13.0 Hypertensive heart and chronic kidney disease with heart failure and stage 1 through stage 4 chronic kidney disease, or unspecified chronic kidney disease (principal); E11.22 Type 2 diabetes mellitus with diabetic chronic kidney disease; I50.9 Heart failure, unspecified; N18.3 Chronic kidney disease, stage 3 (moderate); E83.40 Disorders of magnesium metabolism, unspecified; D64.9 Anemia, unspecified; I25.10 Atherosclerotic heart disease of native coronary artery without angina pectoris; E11.40 Type 2 diabetes mellitus with diabetic neuropathy, unspecified; M19.019 Primary osteoarthritis, unspecified shoulder; G89.29 Other chronic pain; E78.5 Hyperlipidemia, unspecified; E03.9 Hypothyroidism, unspecified; E66.01 Morbid (severe) obesity due to excess calories; E78.00 Pure hypercholesterolemia, unspecified; F03.90 Unspecified dementia, unspecified severity, without behavioral disturbance, psychotic disturbance, mood disturbance, and anxiety; Z79.899 Other long term (current) drug therapy; Z95.1 Presence of aortocoronary bypass graft; Z95.5 Presence of coronary angioplasty implant and graft
CPT/HCPCS: 36415; 80048; 83735; 85025; 96365; 96366; G0463; J1642; J1940

== ENCOUNTER → 2018-07-09 | Outpatient (CLI) | payer MEDICARE, MEDICAID ==
[2018-07-09] VITALS (7 sets, daily range): BP systolic 149–172; BP diastolic 74–89
[~2018-07-09] MED LIST changes: +FUROSEMIDE 100 MG/10ML VIAL IV ONE; -FUROSEMIDE INJECTION 100 MG in SODIUM CHL 0.9% 100 ML IV SCH; -POTASSIUM CHL 20 Meq TABLET PO ONE; +SODIUM CHLORIDE 0.9% 100 ML IV SCH
--- NOTE | 2018-07-09 13:00 | NUR ---
up to void prn. TOLERATING INFUSION WELL. VS WNL.
--- NOTE | 2018-07-09 15:50 | NUR ---
CHF INFUSION COMPLETED. TOLERATED WELL. VS WNL. Discharge Instructions See e-MAR for any mediations given with this visit. Patient education given on disease process. Patient verbalized understanding. Previous labs reviewed. Patient discharged in stable condition with after care instructions and follow up appointment FOR Sunday07/12/18 MEDICATION ADMINISTRATION LASIX GTT AT 30 MG/HR START AT 1224/STOP AT 1545 (TOTAL 90 MG) POTASSIUM 20 MEQ PO AT 1226 HEPARIN 500 UNITS IVP AT 1545.
[2018-07-09 15:51] LABS: Basophils # (auto) 0 uL; Basophils % (auto) 0.7 % (0.0-2.0); Eosinophils # (auto) 0.3 uL; Eosinophils % (auto) 4.6 % (0.0-7.0); Hematocrit 39.2 % (41.0-53.0); Hemoglobin 12.8 g/dL (13.5-17.5); Lymphocytes # (auto) 1.8 uL; Lymphocytes % (auto) 29.9 % (10.0-50.0); Mean Corpuscular Hgb Conc. 32.7 g/dL (32.0-36.0); Mean Corpuscular Volume 88.7 fL (80.0-100.0); Monocytes # (auto) 0.6 uL; Monocytes % (auto) 9.9 % (0.0-12.0); Neutrophils # (auto) 3.3 uL; Neutrophils % (auto) 54.9 % (37.0-80.0); Nucleated Red Blood Cells % 0.3 %; Platelet Count (auto) 229 10^3/uL (140-450); Red Blood Cells 4.42 10^6/uL (4.5-5.90)
[2018-07-09 16:13] LABS: BUN/Creatinine Ratio 9.6; Magnesium 2.6 mg/dL (1.6-2.6); Potassium 3.5 mmol/L (3.5-5.1)
== END | disposition home or self-care (01) ==
LOC: CHF HDHVI 12:35
PROVIDERS: ATTEND Internal Medicine Cardiovascular Disease
DX: I13.0 Hypertensive heart and chronic kidney disease with heart failure and stage 1 through stage 4 chronic kidney disease, or unspecified chronic kidney disease (principal); E11.22 Type 2 diabetes mellitus with diabetic chronic kidney disease; E11.40 Type 2 diabetes mellitus with diabetic neuropathy, unspecified; N18.3 Chronic kidney disease, stage 3 (moderate); I50.9 Heart failure, unspecified; D64.9 Anemia, unspecified; E83.40 Disorders of magnesium metabolism, unspecified; I25.10 Atherosclerotic heart disease of native coronary artery without angina pectoris; E78.5 Hyperlipidemia, unspecified; E03.9 Hypothyroidism, unspecified; E66.01 Morbid (severe) obesity due to excess calories; G89.29 Other chronic pain; M19.019 Primary osteoarthritis, unspecified shoulder; E78.00 Pure hypercholesterolemia, unspecified; F03.90 Unspecified dementia, unspecified severity, without behavioral disturbance, psychotic disturbance, mood disturbance, and anxiety; E66.9 Obesity, unspecified; Z95.1 Presence of aortocoronary bypass graft; Z95.5 Presence of coronary angioplasty implant and graft; Z79.899 Other long term (current) drug therapy
CPT/HCPCS: 36415; 80048; 83735; 85025; 96365; 96366; G0463; J1642; J1940

== ENCOUNTER → 2018-07-12 | Outpatient (CLI) | payer MEDICARE, MEDICAID ==
[~2018-07-12] MED LIST changes: -FUROSEMIDE 100 MG/10ML VIAL IV ONE; -FUROSEMIDE INJECTION 10 ML ONE; +IOHEXOL 350 MG/ML 100ML IJ ONE; -POTASSIUM CHL 10 Meq TABLET PO ONE; -SODIUM CHLORIDE 0.9% 100 ML IV SCH
[2018-07-12 12:16] VITALS: BP 160/61
[2018-07-12 12:50] VITALS: BP 179/62
== END | disposition home or self-care (01) ==
LOC: Rad HDHVI 12:03
PROVIDERS: ATTEND Internal Medicine Cardiovascular Disease
DX: K57.90 Diverticulosis of intestine, part unspecified, without perforation or abscess without bleeding (principal); I70.0 Atherosclerosis of aorta; K86.89 Other specified diseases of pancreas; R91.8 Other nonspecific abnormal finding of lung field; G95.29 Other cord compression; E11.22 Type 2 diabetes mellitus with diabetic chronic kidney disease; I12.9 Hypertensive chronic kidney disease with stage 1 through stage 4 chronic kidney disease, or unspecified chronic kidney disease; N18.9 Chronic kidney disease, unspecified; M54.9 Dorsalgia, unspecified
CPT/HCPCS: 74178; 93306; G0463; Q9967

== ENCOUNTER → 2018-07-17 | Outpatient (CLI) | payer MEDICARE, MEDICAID ==
[~2018-07-17] VITALS: Ht 30.5 cm; Wt 104.3 kg
[~2018-07-17] MED LIST changes: +FUROSEMIDE INJECTION 10 ML ONE; +FUROSEMIDE INJECTION 100 MG in SODIUM CHL 0.9% 100 ML IV SCH; -IOHEXOL 350 MG/ML 100ML IJ ONE; +ONDANSETRON HCL 4 MG/2 ML VIAL IV ONE; +ONDANSETRON HCL 4 MG/2 ML VIAL ONE; +POTASSIUM CHL 10 Meq TABLET PO ONE; +POTASSIUM CHL 20 Meq TABLET PO ONE
--- NOTE | 2018-07-17 11:30 | NUR ---
CHF PT ARRIVED TO THE CHF CLINIC FOR DIURETIC THERAPY. 0 DISTRESS NO COMPLAINT OF PAIN. PT DID COMPLAIN OF NAUSEA ORDERS RECIEVED AND NOTED. V/S OBTAINED
--- NOTE | 2018-07-17 11:45 | NUR ---
Clinic Provider Clinic Provider into see pt with new orders received and carried out. ZOFRAN 4 MG IV X 1 GIVEN
[2018-07-17 12:00] VITALS: BP 146/70
[2018-07-17 12:30] VITALS: BP 158/71
[2018-07-17 13:00] VITALS: BP 150/65
--- NOTE | 2018-07-17 13:22 | NUR ---
NAUSEA REASSESS PT VERBALIZED NO NAUSEA
[2018-07-17 13:30] VITALS: BP 166/64
[2018-07-17 14:00] VITALS: BP 158/69
--- NOTE | 2018-07-17 14:54 | NUR ---
Discharge Instructions See e-MAR for any mediations given with this visit. Patient education given on disease process. Patient verbalized understanding. Previous labs reviewed. Patient discharged in stable condition with after care instructions and follow up appointment. MEDICATIONS 1140 START TIME LASIX DRIP 30MG HR X 3 1450 STOP TIME LASIX DRIP 1455 HEPARIN 500 UNITS IVP TO PORTCATH 1145 ZOFRAN 4MG IV X 1 FOR NAUSEA
--- NOTE | 2018-07-17 14:55 | NUR ---
Port Needle Dressing Change Port Needle Dressing Change provided. See e-MAR for medications given during this visit. Line Heparinized. Vital signs stable. Pt tolerated procedure well.
[2018-07-17 15:09] VITALS: BP 157/76
[2018-07-17 16:57] LABS: Potassium 3.8 mmol/L (3.5-5.1)
== END | disposition home or self-care (01) ==
LOC: CHF HDHVI 11:23
PROVIDERS: ATTEND Internal Medicine Cardiovascular Disease
DX: I12.9 Hypertensive chronic kidney disease with stage 1 through stage 4 chronic kidney disease, or unspecified chronic kidney disease (principal); E11.22 Type 2 diabetes mellitus with diabetic chronic kidney disease; N18.3 Chronic kidney disease, stage 3 (moderate); R94.4 Abnormal results of kidney function studies; E87.6 Hypokalemia; I25.10 Atherosclerotic heart disease of native coronary artery without angina pectoris; E66.01 Morbid (severe) obesity due to excess calories; E78.5 Hyperlipidemia, unspecified; E03.9 Hypothyroidism, unspecified; G89.29 Other chronic pain; E78.00 Pure hypercholesterolemia, unspecified; M19.019 Primary osteoarthritis, unspecified shoulder; E11.40 Type 2 diabetes mellitus with diabetic neuropathy, unspecified; F03.90 Unspecified dementia, unspecified severity, without behavioral disturbance, psychotic disturbance, mood disturbance, and anxiety; Z79.899 Other long term (current) drug therapy; Z95.1 Presence of aortocoronary bypass graft; Z95.5 Presence of coronary angioplasty implant and graft
CPT/HCPCS: 36415; 82565; 83036; 84132; 84520; 96365; 96366; 96375; G0463; J1642; J1940; J2405

== ENCOUNTER → 2018-07-23 | Outpatient (CLI) | payer MEDICARE, MEDICAID ==
[~2018-07-23] MED LIST changes: -ONDANSETRON HCL 4 MG/2 ML VIAL IV ONE; -ONDANSETRON HCL 4 MG/2 ML VIAL ONE
--- NOTE | 2018-07-23 11:36 | NUR ---
CHF PT ARRIVED TO CHF CLINIC 0 DISTRESS. VITAL SIGNS OBTAINED PT ALERT AND ORIENTED
--- NOTE | 2018-07-23 15:00 | NUR ---
Discharge Instructions See e-MAR for any mediations given with this visit. Patient education given on disease process. Patient verbalized understanding. Previous labs reviewed. Patient discharged in stable condition with after care instructions and follow up appointment. MEDICATIONS 1200 START TIME LASIX DRIP 1500 STOP TIME 1500 HEPARIN 500 MG IVP POTASSIUM 30 MEQ PO X 1
[2018-07-23 15:02] VITALS: BP 147/77
--- NOTE | 2018-07-23 15:02 | NUR ---
Paulie Cath Removal Groves needle D/C'd after Heparin flush per protocol. See e-MAR for medications given during this visit. Sterile occlusive dressing to site. Patient tolerated procedure well. Site benign post infusion. MEDICATIONS 1200 START TIME LASIX DRIP 1500 STOP TIME 1500 HEPARIN 500 MG IVP POTASSIUM 30 MEQ PO X 1
[2018-07-23 16:27] LABS: Potassium 3.4 mmol/L (3.5-5.1)
== END | disposition home or self-care (01) ==
LOC: CHF HDHVI 11:37
PROVIDERS: ATTEND Internal Medicine Cardiovascular Disease
DX: I13.0 Hypertensive heart and chronic kidney disease with heart failure and stage 1 through stage 4 chronic kidney disease, or unspecified chronic kidney disease (principal); E11.22 Type 2 diabetes mellitus with diabetic chronic kidney disease; N18.3 Chronic kidney disease, stage 3 (moderate); I50.9 Heart failure, unspecified; R94.4 Abnormal results of kidney function studies; E87.6 Hypokalemia; I25.10 Atherosclerotic heart disease of native coronary artery without angina pectoris; I70.0 Atherosclerosis of aorta; E11.40 Type 2 diabetes mellitus with diabetic neuropathy, unspecified; E78.5 Hyperlipidemia, unspecified; E03.9 Hypothyroidism, unspecified; E78.00 Pure hypercholesterolemia, unspecified; E66.01 Morbid (severe) obesity due to excess calories; M19.019 Primary osteoarthritis, unspecified shoulder; G89.29 Other chronic pain; Z79.899 Other long term (current) drug therapy; Z95.5 Presence of coronary angioplasty implant and graft; Z95.1 Presence of aortocoronary bypass graft
CPT/HCPCS: 36415; 82565; 84132; 84520; 96365; 96366; G0463; J1642; J1940

== ENCOUNTER → 2018-07-30 | Outpatient (CLI) | payer MEDICARE, MEDICAID ==
[~2018-07-30] MED LIST changes: +FUROSEMIDE 100 MG/10ML VIAL IV ONE; -FUROSEMIDE INJECTION 100 MG in SODIUM CHL 0.9% 100 ML IV SCH; +SODIUM CHLORIDE 0.9% 100 ML IV SCH
--- NOTE | 2018-07-30 11:37 | NUR ---
CHF PT ARRIVED AT THE CHF CLINIC ALERT ORIENTED 0 DISTRESS V/S OBTAINED RAMY MORAN DISCUSSED PLAN OF CARE PT VERBALIZED UNDERSTANDING
[2018-07-30 11:40] VITALS: BP 161/75
[2018-07-30 12:15] VITALS: BP 154/67
[2018-07-30 12:45] VITALS: BP 156/60
[2018-07-30 13:15] VITALS: BP 160/76
[2018-07-30 14:15] VITALS: BP 161/80
[2018-07-30 15:08] VITALS: BP 173/73
--- NOTE | 2018-07-30 15:08 | NUR ---
Discharge Instructions See e-MAR for any mediations given with this visit. Patient education given on disease process. Patient verbalized understanding. Previous labs reviewed. Patient discharged in stable condition with after care instructions and follow up appointment. Addendum: 07/30/18 at 1517 by EPIFANIO GUTIERREZ RN RN [place] MEDICATIONS 1211 START TIME LASIX DRIP 30MG/HR X 3 HR 1508 STOP TIME LASIX DRIP 1230 POTASSIUM 30 MEQ PO X 1 1508 HEPARIN 500 UNITS IVP X 1
[2018-07-30 15:56] LABS: Basophils # (auto) 0 uL; Basophils % (auto) 0.6 % (0.0-2.0); Eosinophils # (auto) 0.2 uL; Eosinophils % (auto) 4.9 % (0.0-7.0); Lymphocytes # (auto) 1.7 uL; Lymphocytes % (auto) 34.6 % (10.0-50.0); Mean Corpuscular Hemoglobin 29.2 pg (28.0-32.0); Mean Corpuscular Hgb Conc. 33.3 g/dL (32.0-36.0); Mean Corpuscular Volume 87.9 fL (80.0-100.0); Monocytes # (auto) 0.5 uL; Monocytes % (auto) 9.9 % (0.0-12.0); Neutrophils # (auto) 2.4 uL; Nucleated Red Blood Cells % 0.5 %; Platelet Count (auto) 189 10^3/uL (140-450); Red Blood Cells 4.44 10^6/uL (4.5-5.90); Red Cell Distribution Width 15.1 % (11.8-14.3); White Blood Cell 4.8 10^3/uL (4.4-10.8)
[2018-07-30 16:13] LABS: Potassium 3.8 mmol/L (3.5-5.1)
[2018-07-30 16:20] LABS: BUN/Creatinine Ratio 13.5; Magnesium 2.5 mg/dL (1.6-2.6)
== END | disposition home or self-care (01) ==
LOC: CHF HDHVI 11:54
PROVIDERS: ATTEND Internal Medicine Cardiovascular Disease
DX: I13.0 Hypertensive heart and chronic kidney disease with heart failure and stage 1 through stage 4 chronic kidney disease, or unspecified chronic kidney disease (principal); I50.9 Heart failure, unspecified; N18.3 Chronic kidney disease, stage 3 (moderate); E11.65 Type 2 diabetes mellitus with hyperglycemia; E83.40 Disorders of magnesium metabolism, unspecified; E11.22 Type 2 diabetes mellitus with diabetic chronic kidney disease; E11.40 Type 2 diabetes mellitus with diabetic neuropathy, unspecified; E03.9 Hypothyroidism, unspecified; E78.5 Hyperlipidemia, unspecified; E66.01 Morbid (severe) obesity due to excess calories; F03.90 Unspecified dementia, unspecified severity, without behavioral disturbance, psychotic disturbance, mood disturbance, and anxiety; K57.90 Diverticulosis of intestine, part unspecified, without perforation or abscess without bleeding; M19.019 Primary osteoarthritis, unspecified shoulder
CPT/HCPCS: 36415; 80048; 83036; 83735; 85025; 96365; 96366; G0463; J1642; J1940

== ENCOUNTER → 2018-08-07 | Outpatient (CLI) | payer MEDICARE, MEDICAID ==
[~2018-08-07] VITALS: Ht 165.1 cm; Wt 103.4 kg
[2018-08-07] VITALS (7 sets, daily range): BP systolic 127–152; BP diastolic 64–83
[~2018-08-07] MED LIST changes: +SODIUM CHLORIDE 0.9% 100 ML IV ONE; -SODIUM CHLORIDE 0.9% 100 ML IV SCH
--- NOTE | 2018-08-07 12:00 | NUR ---
Clinic Provider Clinic Provider updated new orders received and carried out. Lasix gtt started at {30}mg/hr per MD order.
--- NOTE | 2018-08-07 12:00 | NUR ---
CHF PT AR[facility] AT [facility] A/O [facility] 3 0 DISTRESS. V/S OBTAINED
--- NOTE | 2018-08-07 15:02 | NUR ---
Discharge Instructions See e-MAR for any mediations given with this visit. Patient education given on disease process. Patient verbalized understanding. Previous labs reviewed. Patient discharged in stable condition with after care instructions and follow up appointment. MEDICATIONS 1205 START TIME LASIX DRIP 30MG/HR X 3 1500 STOP TIME LASIX 1210 POTASSIUM 30 MEQ PO X 1 1459 HEPARIN 500 UNITS IVP X 1
[2018-08-07 16:17] LABS: BUN/Creatinine Ratio 12.5; Calcium 7.8 mg/dL (8.5-10.1); Magnesium 2.6 mg/dL (1.6-2.6); Potassium 3.9 mmol/L (3.5-5.1)
[2018-08-07 16:27] LABS: Basophils # (auto) 0 uL; Basophils % (auto) 0.7 % (0.0-2.0); Eosinophils # (auto) 0.2 uL; Eosinophils % (auto) 4.9 % (0.0-7.0); Hematocrit 39.1 % (41.0-53.0); Hemoglobin 12.8 g/dL (13.5-17.5); Lymphocytes # (auto) 1.5 uL; Mean Corpuscular Hgb Conc. 32.8 g/dL (32.0-36.0); Mean Corpuscular Volume 88.2 fL (80.0-100.0); Monocytes # (auto) 0.4 uL; Monocytes % (auto) 9.2 % (0.0-12.0); Neutrophils # (auto) 2.3 uL; Neutrophils % (auto) 51.2 % (37.0-80.0); Nucleated Red Blood Cells % 0.1 %; Platelet Count (auto) 171 10^3/uL (140-450); Red Blood Cells 4.43 10^6/uL (4.5-5.90); Red Cell Distribution Width 15.3 % (11.8-14.3); White Blood Cell 4.5 10^3/uL (4.4-10.8)
== END | disposition home or self-care (01) ==
LOC: CHF HDHVI 11:39
PROVIDERS: ATTEND Internal Medicine Cardiovascular Disease
DX: I13.0 Hypertensive heart and chronic kidney disease with heart failure and stage 1 through stage 4 chronic kidney disease, or unspecified chronic kidney disease (principal); E11.22 Type 2 diabetes mellitus with diabetic chronic kidney disease; N18.3 Chronic kidney disease, stage 3 (moderate); I50.9 Heart failure, unspecified; D64.9 Anemia, unspecified; E61.2 Magnesium deficiency; I25.10 Atherosclerotic heart disease of native coronary artery without angina pectoris; E11.40 Type 2 diabetes mellitus with diabetic neuropathy, unspecified; E78.5 Hyperlipidemia, unspecified; E03.9 Hypothyroidism, unspecified; E66.01 Morbid (severe) obesity due to excess calories; E78.00 Pure hypercholesterolemia, unspecified; M19.019 Primary osteoarthritis, unspecified shoulder; F03.90 Unspecified dementia, unspecified severity, without behavioral disturbance, psychotic disturbance, mood disturbance, and anxiety; G89.29 Other chronic pain; Z95.1 Presence of aortocoronary bypass graft; Z95.5 Presence of coronary angioplasty implant and graft; Z79.899 Other long term (current) drug therapy
CPT/HCPCS: 36415; 80048; 83735; 85025; 96365; 96366; G0463; J1642; J1940

== ENCOUNTER → 2018-08-26 | Outpatient (CLI) | payer MEDICARE, MEDICAID ==
[~2018-08-26] VITALS: Ht 30.5 cm; Wt 103.0 kg
--- NOTE | 2018-08-26 11:45 | NUR ---
CHF PT ARRIVED TH THE CHF CLINIC FOR THERAPY, PT ALERT AND ORIENTED X 3. O DISTRESS. V/S OBTAINED
--- NOTE | 2018-08-26 11:55 | NUR ---
Clinic Provider Clinic Provider into see pt with new orders received and carried out. Lasix gtt started at {30}mg/hr per MD order.
[2018-08-26 12:30] VITALS: BP 145/70
[2018-08-26 13:30] VITALS: BP 151/83
[2018-08-26 14:00] VITALS: BP 161/78
[2018-08-26 14:30] VITALS: BP 150/88
[2018-08-26 15:00] VITALS: BP 162/83
[2018-08-26 15:20] VITALS: BP 162/83
--- NOTE | 2018-08-26 15:20 | NUR ---
Discharge Instructions See e-MAR for any mediations given with this visit. Patient education given on disease process. Patient verbalized understanding. Previous labs reviewed. Patient discharged in stable condition with after care instructions and follow up appointment. MEDICATIONS START TIME LASIX DRIP 30 MG/HR X 3 HR TOTAL STOP TIME LASIX 1515 1510 POTASSIUM 30 MEQ PO X 1 1518 HEPARIN 500 UNITS IVP X 1 Addendum: 08/26/18 at 1544 by EPIFANIO GUTIERREZ RN RN VA TIMES FOR POTAAIUM AND HEPARIN WRONG ON EMAR PLEASE NOTE DISCHARGE INSTRUCTIONS FOR CORRECT TIMES
[2018-08-26 16:24] LABS: Calcium 8.4 mg/dL (8.5-10.1); Magnesium 2.2 mg/dL (1.6-2.6); Potassium 3.7 mmol/L (3.5-5.1)
[2018-08-26 17:03] LABS: Basophils # (auto) 0 uL; Basophils % (auto) 0.7 % (0.0-2.0); Eosinophils # (auto) 0.2 uL; Eosinophils % (auto) 4.6 % (0.0-7.0); Hematocrit 39.8 % (41.0-53.0); Hemoglobin 13.2 g/dL (13.5-17.5); Lymphocytes # (auto) 1.8 uL; Mean Corpuscular Hemoglobin 29.1 pg (28.0-32.0); Mean Corpuscular Hgb Conc. 33.3 g/dL (32.0-36.0); Mean Corpuscular Volume 87.6 fL (80.0-100.0); Monocytes # (auto) 0.4 uL; Monocytes % (auto) 8.1 % (0.0-12.0); Neutrophils # (auto) 2.5 uL; Neutrophils % (auto) 49.6 % (37.0-80.0); Nucleated Red Blood Cells % 0.6 %; Platelet Count (auto) 169 10^3/uL (140-450); Red Blood Cells 4.54 10^6/uL (4.5-5.90); Red Cell Distribution Width 15.5 % (11.8-14.3)
== END | disposition home or self-care (01) ==
LOC: CHF HDHVI 11:45
PROVIDERS: ATTEND Internal Medicine
DX: I11.0 Hypertensive heart disease with heart failure (principal); D64.9 Anemia, unspecified; E83.40 Disorders of magnesium metabolism, unspecified
CPT/HCPCS: 36415; 80048; 82306; 83735; 85025; 96365; 96366; G0463; J1642; J1940

== ENCOUNTER → 2018-09-10 | Outpatient (CLI) | payer MEDICARE, MEDICAID ==
[~2018-09-10] MED LIST changes: -FUROSEMIDE 100 MG/10ML VIAL IV ONE; +FUROSEMIDE IV SCH; +SODIUM CHL 0.9% IV SCH; -SODIUM CHLORIDE 0.9% 100 ML IV ONE
--- NOTE | 2018-09-10 12:05 | NUR ---
PT. TO CHF CLINIC FOR EVAL AND TX PER MD ORDER. PT. FEELING "SO-SO". WT UP SLIGHTLY. ORDERS RECEIVED AND CARRIED OUT. SEE NSG. ASSESS.
--- NOTE | 2018-09-10 12:20 | NUR ---
Paulie Cath Insertion 20 gauge Paulie Cath inserted using sterile technique in the upper chest with occlusive dressing over lares needle. Patient tolerated procedure well. See e-MAR for medications given during this visit.
--- NOTE | 2018-09-10 12:31 | NUR ---
MEDS: LASIX DRIP STARTED PER MD ORDER AT 30MG/HR.
[2018-09-10 13:00] VITALS: BP 158/82
[2018-09-10 13:30] VITALS: BP 164/80
--- NOTE | 2018-09-10 13:30 | NUR ---
BRP X2 WITHOUT ASSIST. MEDS RESUMED. NO C/O AT THIS TIME. VSS.
[2018-09-10 14:00] VITALS: BP 159/80
--- NOTE | 2018-09-10 16:02 | NUR ---
MEDS: PT. MEDICATED WITH KDUR 30 MEQ PER MD ORDER.
--- NOTE | 2018-09-10 16:10 | NUR ---
Discharge Instructions See e-MAR for any mediations given with this visit. Patient education given on disease process. Patient verbalized understanding. Previous labs reviewed. Patient discharged in stable condition with after care instructions and follow up appointment. WT. DOWN 5 LBS AFTER LASIX DRIP. PT. STATES HE FEELING BETTER AFTER MEDS.
[2018-09-10 16:20] VITALS: BP 168/76
== END | disposition home or self-care (01) ==
LOC: CHF HDHVI 12:04
PROVIDERS: ATTEND Internal Medicine
DX: I11.0 Hypertensive heart disease with heart failure (principal); I50.9 Heart failure, unspecified
CPT/HCPCS: 96365; 96366; G0463; J1642; J1940

== ENCOUNTER → 2018-10-09 | Outpatient (CLI) | payer MEDICARE, MEDICAID ==
[~2018-10-09] MED LIST changes: +ADENOSINE 90 MG/30 ML INJ IV ONE; +CYANOCOBALAMIN (B-12) 1000 MCG/1 ML VIAL IM ONE; +CYANOCOBALAMIN (B-12) 1000 MCG/1 ML VIAL ONE; +FUROSEMIDE INJECTION 100 MG in SODIUM CHL 0.9% 100 ML IV SCH; -FUROSEMIDE IV SCH; -LOSA-46 PO; +LOSA-69 PO; +ONDANSETRON HCL 4 MG/2 ML VIAL IV ONE; +ONDANSETRON HCL 4 MG/2 ML VIAL ONE; +POTA-220 PO; -POTA20TA53 PO; -SODIUM CHL 0.9% IV SCH
--- NOTE | 2018-10-09 11:10 | NUR ---
PT. TO CHF CLINIC FOR LASIX DRIP PER DR. HILLS. PT. WITH 6 LB. WEIGHT GAIN SINCE LAST VISIT WITH SOB ON EXERTION. ORDERS RECEIVED AND CARRIED OUT. SEE NSG. ASSESS.
--- NOTE | 2018-10-09 11:25 | NUR ---
CARDIODYNAMICS DONE WITH IMPROVED RESULTS TO PT. AND CHARTED.
--- NOTE | 2018-10-09 11:28 | NUR ---
Clinic Provider Clinic Provider into see pt with new orders received and carried out. Lasix gtt started at {30}mg/hr per MD order.
--- NOTE | 2018-10-09 11:35 | NUR ---
MEDS: PT. MEDICATED WITH KDUR 40 MEQ PO PER MD ORDER.
--- NOTE | 2018-10-09 11:48 | NUR ---
MEDS: PT. MEDICATED WITH VIT. B12 1000MCG IM LFT DELT.
[2018-10-09 12:00] VITALS: BP 151/67
--- NOTE | 2018-10-09 12:15 | NUR ---
PT. TO AND FROM BR WITHOUT ASSIST. MEDS RESUMED.
[2018-10-09 12:30] VITALS: BP 137/82
--- NOTE | 2018-10-09 12:45 | NUR ---
MEDS: PT. MEDICATED WITH ZOFRAN 4 MG SIVP FOR C/O NAUSEA, PER MD ORDER.
[2018-10-09 13:00] VITALS: BP 145/71
--- NOTE | 2018-10-09 13:15 | NUR ---
PT. TO AND FROM BR WITHOUT ASSIST. PT. STATES NAUSEA IMPROVING.
[2018-10-09 13:30] VITALS: BP 164/74
--- NOTE | 2018-10-09 13:47 | NUR ---
PT. TO AND FROM BR. MEDS. RESUMED.
[2018-10-09 14:00] VITALS: BP 143/71
[2018-10-09 14:30] VITALS: BP 156/85
[2018-10-09 16:11] LABS: Basophils # (auto) 0 uL; Basophils % (auto) 0.5 % (0.0-2.0); Eosinophils # (auto) 0.2 uL; Eosinophils % (auto) 4.2 % (0.0-7.0); Hematocrit 39.1 % (41.0-53.0); Lymphocytes # (auto) 1.4 uL; Lymphocytes % (auto) 35.1 % (10.0-50.0); Mean Corpuscular Hemoglobin 29.1 pg (28.0-32.0); Mean Corpuscular Hgb Conc. 33.2 g/dL (32.0-36.0); Mean Corpuscular Volume 87.6 fL (80.0-100.0); Monocytes # (auto) 0.4 uL; Monocytes % (auto) 9.4 % (0.0-12.0); Neutrophils % (auto) 50.8 % (37.0-80.0); Nucleated Red Blood Cells % 0.1 %; Platelet Count (auto) 166 10^3/uL (140-450); Red Blood Cells 4.47 10^6/uL (4.5-5.90); Red Cell Distribution Width 17.8 % (11.8-14.3)
[2018-10-09 16:23] LABS: BUN/Creatinine Ratio 13.8; Calcium 8.1 mg/dL (8.5-10.1); Magnesium 2.7 mg/dL (1.6-2.6); Potassium 3.9 mmol/L (3.5-5.1)
== END | disposition home or self-care (01) ==
LOC: CHF HDHVI 11:25
PROVIDERS: ATTEND Internal Medicine Cardiovascular Disease
DX: I25.10 Atherosclerotic heart disease of native coronary artery without angina pectoris (principal); I11.0 Hypertensive heart disease with heart failure; I50.9 Heart failure, unspecified; E83.40 Disorders of magnesium metabolism, unspecified; D64.9 Anemia, unspecified; R11.0 Nausea; E11.9 Type 2 diabetes mellitus without complications; Z95.1 Presence of aortocoronary bypass graft
CPT/HCPCS: 96365; 96366; 96372; 96375; J1642; J1940; J2405; J3420; J7040; J0153

== ENCOUNTER → 2018-10-18 | Outpatient (CLI) | payer MEDICARE, MEDICAID ==
[~2018-10-18] MED LIST changes: -ADENOSINE 90 MG/30 ML INJ IV ONE; -CYANOCOBALAMIN (B-12) 1000 MCG/1 ML VIAL IM ONE; -CYANOCOBALAMIN (B-12) 1000 MCG/1 ML VIAL ONE; +FUROSEMIDE 40 MG/4 ML VIAL IV ONE; -FUROSEMIDE INJECTION 100 MG in SODIUM CHL 0.9% 100 ML IV SCH; -ONDANSETRON HCL 4 MG/2 ML VIAL IV ONE; -ONDANSETRON HCL 4 MG/2 ML VIAL ONE; -POTASSIUM CHL 20 Meq TABLET PO ONE; +POTASSIUM CHL 20MEQ/100ML 100 ML IV ONE; +SODIUM CHLORIDE 0.9% 1,000 ML IV SCH
--- NOTE | 2018-10-18 10:45 | NUR ---
IN FOR DIURETIC THERAPY. IN ATTENDANCE. WITHOUT DISTRESS AND WITHOUT DISCOMFORT. Paulie Cath Insertion 20 gauge Paulie Cath inserted using sterile technique in the upper chest with occlusive dressing over lares needle. Patient tolerated procedure well.
--- NOTE | 2018-10-18 10:58 | NUR ---
Clinic Provider Clinic Provider into see pt with new orders received and carried out. LASIX STARTED PER ORDER. .
--- NOTE | 2018-10-18 12:05 | NUR ---
IV LASIX COMPLETED.
[2018-10-18 12:20] VITALS: BP 143/65
--- NOTE | 2018-10-18 12:20 | NUR ---
CHF Paulie Cath Removal Groves needle D/C'd after Heparin flush per protocol. See e-MAR for medications given during this visit. Sterile occlusive dressing to site. Patient tolerated procedure well. Site benign post infusion. Discharge Instructions See e-MAR for any mediations given with this visit. Patient education given on disease process. Patient verbalized understanding. Previous labs reviewed. Patient discharged in stable condition with after care instructions and follow up appointment. MEDICATION ADMINISTRATION FUROSEMIDE 100 MG IN 100 ML START AT 1058/STOP AT 1205 (TOTAL ADMINISTERED 80ML) POTASSIUM 30 MEQ PO AT 1105 HEPARIN 500 UNITS IVP TO PORT
== END | disposition home or self-care (01) ==
LOC: CHF HDHVI 10:46
PROVIDERS: ATTEND Internal Medicine
DX: I11.0 Hypertensive heart disease with heart failure (principal); I50.9 Heart failure, unspecified; R19.00 Intra-abdominal and pelvic swelling, mass and lump, unspecified site; E11.21 Type 2 diabetes mellitus with diabetic nephropathy
CPT/HCPCS: 96365; G0463; J1642; J1940; J7030; J3480

== ENCOUNTER → 2018-10-28 | Outpatient (CLI) | payer MEDICARE, MEDICAID ==
[~2018-10-28] MED LIST changes: +FUROSEMIDE 100 MG/10ML VIAL IV SCH; -FUROSEMIDE 40 MG/4 ML VIAL IV ONE; +POTASSIUM CHL 20 Meq TABLET PO ONE; -POTASSIUM CHL 20MEQ/100ML 100 ML IV ONE; -SODIUM CHLORIDE 0.9% 1,000 ML IV SCH; +SODIUM CHLORIDE 0.9% 100 ML IV ONE
--- NOTE | 2018-10-28 11:32 | NUR ---
chf PT ARRIVED AT THE CHF CLINIC FOR TX AND FOLLOW UP. LABS AND VS OBTAINED 0 DISTRESS NOTED.
[2018-10-28 12:20] VITALS: BP 134/67
[2018-10-28 12:35] VITALS: BP 156/70
[2018-10-28 12:50] VITALS: BP 136/74
[2018-10-28 13:30] VITALS: BP 140/69
[2018-10-28 15:20] VITALS: BP 168/89
--- NOTE | 2018-10-28 15:35 | NUR ---
Discharge Instructions See e-MAR for any mediations given with this visit. Patient education given on disease process. Patient verbalized understanding. Previous labs reviewed. Patient discharged in stable condition with after care instructions and follow up appointment. MEDICATIONS 1220 START TIME LASIX 100 MG/100ML DRIP 30MG/HR X 3 HR 1520 STOP TIME LASIX DRIP POTASSIUM 30 MEQ PO X 1 HEPARIN 500 UNITS IVP X 1
[2018-10-28 16:06] LABS: Potassium 3.8 mmol/L (3.5-5.1)
== END | disposition home or self-care (01) ==
LOC: CHF HDHVI 11:26
PROVIDERS: ATTEND Internal Medicine
DX: I11.0 Hypertensive heart disease with heart failure (principal); I50.9 Heart failure, unspecified; E87.6 Hypokalemia; E11.21 Type 2 diabetes mellitus with diabetic nephropathy
CPT/HCPCS: 36415; 82565; 83880; 84132; 84520; 96365; 96366; G0463; J1642; J1940

== ENCOUNTER → 2018-11-14 | Outpatient (CLI) | payer MEDICARE, MEDICAID ==
[~2018-11-14] MED LIST changes: +FUROSEMIDE 100 MG/10ML VIAL IV ONE; -FUROSEMIDE 100 MG/10ML VIAL IV SCH
[2018-11-14 12:00] VITALS: BP 180/68
[2018-11-14 13:00] VITALS: BP 142/57
[2018-11-14 13:15] VITALS: BP 147/80
[2018-11-14 13:30] VITALS: BP 159/79
[2018-11-14 14:00] VITALS: BP 157/81
[2018-11-14 15:19] VITALS: BP 157/82
--- NOTE | 2018-11-14 15:19 | NUR ---
Discharge Instructions See e-MAR for any mediations given with this visit. Patient education given on disease process. Patient verbalized understanding. Previous labs reviewed. Patient discharged in stable condition with after care instructions and follow up appointment. MEDICATIONS LASIX DRIP 6781-2285 NS 100 ML IV 2427-4662 POTASSIUM 40 MEQ PO HEPARIN 500 UNITS Addendum: 11/28/18 at 1518 by EPIFANIO GUTIERREZ RN RN PR LATE ENTRY FOR POTASSIUM 30 MEQ PO X 1
[2018-11-14 16:41] LABS: Basophils # (auto) 0 uL; Basophils % (auto) 0.8 % (0.0-2.0); Eosinophils # (auto) 0.2 uL; Eosinophils % (auto) 3.7 % (0.0-7.0); Hematocrit 38.4 % (41.0-53.0); Hemoglobin 12.7 g/dL (13.5-17.5); Lymphocytes # (auto) 1.6 uL; Mean Corpuscular Hemoglobin 29.7 pg (28.0-32.0); Mean Corpuscular Hgb Conc. 33.2 g/dL (32.0-36.0); Mean Corpuscular Volume 89.7 fL (80.0-100.0); Monocytes # (auto) 0.5 uL; Monocytes % (auto) 9.5 % (0.0-12.0); Neutrophils # (auto) 2.8 uL; Nucleated Red Blood Cells % 0.1 %; Platelet Count (auto) 172 10^3/uL (140-450); Red Blood Cells 4.29 10^6/uL (4.5-5.90); Red Cell Distribution Width 18.5 % (11.8-14.3); White Blood Cell 5.2 10^3/uL (4.4-10.8)
[2018-11-14 16:55] LABS: Albumin 3.3 g/dL (3.4-5.0); Anion Gap 10 (5-15); Blood Urea Nitrogen 22 mg/dL (7-18); Calcium 8.1 mg/dL (8.5-10.1); Carbon Dioxide 23 mmol/L (21-32); Chloride 110 mmol/L (98-107); Glucose 151 mg/dL (74-106); Magnesium 2.3 mg/dL (1.6-2.6); Potassium 3.9 mmol/L (3.5-5.1); Sodium 143 mmol/L (136-145)
[2018-11-14 16:57] LABS: Alanine Aminotransferase 25 U/L (16-61); Aspartate Aminotransferase 18 U/L (15-37); BUN/Creatinine Ratio 16.1; GFR African American 65 mL/min; GFR Non-African American 54 mL/min
[2018-11-14 16:59] LABS: Alkaline Phosphatase 59 U/L (45-117); Bilirubin, Total 0.8 mg/dL (0.2-1.0); Total Protein 6.6 g/dL (6.4-8.2)
== END | disposition home or self-care (01) ==
LOC: CHF HDHVI 11:57
PROVIDERS: ATTEND Internal Medicine Cardiovascular Disease
DX: I25.10 Atherosclerotic heart disease of native coronary artery without angina pectoris (principal); I11.0 Hypertensive heart disease with heart failure; I50.9 Heart failure, unspecified; E61.2 Magnesium deficiency; D64.9 Anemia, unspecified; K90.9 Intestinal malabsorption, unspecified; E11.21 Type 2 diabetes mellitus with diabetic nephropathy; Z95.1 Presence of aortocoronary bypass graft
CPT/HCPCS: 36415; 80053; 82306; 82607; 83735; 85025; 96365; 96366; G0463; J1642; J1940

== ENCOUNTER → 2018-11-21 | Outpatient (CLI) | payer MEDICARE, MEDICAID ==
[2018-11-21] VITALS (9 sets, daily range): BP systolic 123–144; BP diastolic 60–83
[~2018-11-21] VITALS: Ht 30.5 cm; Wt 103.4 kg
--- NOTE | 2018-11-21 12:17 | NUR ---
Discharge Instructions See e-MAR for any mediations given with this visit. Patient education given on disease process. Patient verbalized understanding. Previous labs reviewed. Patient discharged in stable condition with after care instructions and follow up appointment. MEDICATIONS LASIX DRIP 30MG/HR 3295-9601 POTASSIUM 40 MEQ PO X1 HEPARIN 500 UNITS IVP NS 100 ML IV [id number]
== END | disposition home or self-care (01) ==
LOC: CHF HDHVI 08:43
PROVIDERS: ATTEND Internal Medicine Cardiovascular Disease
DX: I11.0 Hypertensive heart disease with heart failure (principal); E11.21 Type 2 diabetes mellitus with diabetic nephropathy; R60.0 Localized edema; I25.10 Atherosclerotic heart disease of native coronary artery without angina pectoris; I50.9 Heart failure, unspecified
CPT/HCPCS: 36415; 83036; 96365; 96366; G0463; J1642; J1940

== ENCOUNTER → 2018-11-28 | Outpatient (CLI) | payer MEDICARE, MEDICAID ==
[~2018-11-28] MED LIST changes: -SODIUM CHLORIDE 0.9% 100 ML IV ONE; +SODIUM CHLORIDE 0.9% 100 ML IV SCH
[2018-11-28 11:45] VITALS: BP 145/53
[2018-11-28 12:00] VITALS: BP 139/67
[2018-11-28 14:32] VITALS: BP 154/77
--- NOTE | 2018-11-28 14:32 | NUR ---
Discharge Instructions See e-MAR for any mediations given with this visit. Patient education given on disease process. Patient verbalized understanding. Previous labs reviewed. Patient discharged in stable condition with after care instructions and follow up appointment. MEDICATIONS LASIX DRIP 9922-3928 POTASSIUM 40 X 1 HEPARIN 500 UNITS IVP X 1
[2018-11-28 15:55] LABS: Basophils # (auto) 0 uL; Basophils % (auto) 0.4 % (0.0-2.0); Eosinophils # (auto) 0.2 uL; Eosinophils % (auto) 3.6 % (0.0-7.0); Hemoglobin 13.5 g/dL (13.5-17.5); Lymphocytes # (auto) 1.6 uL; Lymphocytes % (auto) 36.8 % (10.0-50.0); Mean Corpuscular Hemoglobin 30.1 pg (28.0-32.0); Mean Corpuscular Volume 91.1 fL (80.0-100.0); Monocytes # (auto) 0.4 uL; Monocytes % (auto) 8.2 % (0.0-12.0); Neutrophils # (auto) 2.3 uL; Nucleated Red Blood Cells % 0.1 %; Platelet Count (auto) 174 10^3/uL (140-450); Red Cell Distribution Width 17.8 % (11.8-14.3); White Blood Cell 4.4 10^3/uL (4.4-10.8)
[2018-11-28 15:59] LABS: BUN/Creatinine Ratio 17.6; Calcium 8.1 mg/dL (8.5-10.1); Magnesium 2.3 mg/dL (1.6-2.6); Potassium 3.4 mmol/L (3.5-5.1)
== END | disposition home or self-care (01) ==
LOC: CHF HDHVI 11:11
PROVIDERS: ATTEND Internal Medicine Cardiovascular Disease
DX: I11.0 Hypertensive heart disease with heart failure (principal); I50.9 Heart failure, unspecified; I25.10 Atherosclerotic heart disease of native coronary artery without angina pectoris; D64.9 Anemia, unspecified; E83.40 Disorders of magnesium metabolism, unspecified; R53.83 Other fatigue; E11.21 Type 2 diabetes mellitus with diabetic nephropathy; Z95.1 Presence of aortocoronary bypass graft
CPT/HCPCS: 36415; 80048; 83735; 85025; 96365; 96366; G0463; J1642; J1940

== ENCOUNTER → 2018-12-05 | Outpatient (CLI) | payer MEDICARE, MEDICAID ==
[~2018-12-05] MED LIST changes: -POTASSIUM CHL 20 Meq TABLET PO ONE; +SODIUM CHLORIDE 0.9% 100 ML IV ONE; -SODIUM CHLORIDE 0.9% 100 ML IV SCH
--- NOTE | 2018-12-05 11:45 | NUR ---
Paulie Cath Insertion 20 gauge Paulie Cath inserted by Nedra SPANGLER using sterile technique in the r upper chest with occlusive dressing over lares needle. Patient tolerated procedure well. Ordered labs drawn and sent. See e-MAR for medications given during this visit.
[2018-12-05 12:00] VITALS: BP 137/70
[2018-12-05 12:30] VITALS: BP 143/74
[2018-12-05 13:00] VITALS: BP 140/74
[2018-12-05 13:30] VITALS: BP 152/86
--- NOTE | 2018-12-05 14:05 | NUR ---
Discharge Instructions See e-MAR for any mediations given with this visit. Patient education given on disease process. Patient verbalized understanding. Previous labs reviewed. Patient discharged in stable condition with after care instructions and follow up appointment. MEDS LASIX DRIP [id number] POTASSIUM PO HEPARIN 500 UNITS IVP
[2018-12-05 14:10] VITALS: BP 137/70
[2018-12-05 16:10] LABS: Potassium 3.8 mmol/L (3.5-5.1)
== END | disposition home or self-care (01) ==
LOC: CHF HDHVI 11:09
PROVIDERS: ATTEND Internal Medicine Cardiovascular Disease
DX: I11.0 Hypertensive heart disease with heart failure (principal); I50.9 Heart failure, unspecified; I25.10 Atherosclerotic heart disease of native coronary artery without angina pectoris; E87.6 Hypokalemia; R94.4 Abnormal results of kidney function studies; E11.21 Type 2 diabetes mellitus with diabetic nephropathy
CPT/HCPCS: 36415; 82565; 84132; 84520; 96365; 96366; G0463; J1642; J1940

== ENCOUNTER → 2018-12-25 | Outpatient (CLI) | payer MEDICARE, MEDICAID ==
[~2018-12-25] MED LIST changes: +POTASSIUM CHL 20 Meq TABLET PO ONE; +SODIUM CHLORIDE 0.9% 1,000 ML IV ONE; -SODIUM CHLORIDE 0.9% 100 ML IV ONE
--- NOTE | 2018-12-25 11:48 | NUR ---
CHF PT ARRIVED TO THE CLINIC FOR LASIX GTT , PT A/O X 4 0 DISTRESS VSS
[2018-12-25 12:10] VITALS: BP 135/71
[2018-12-25 12:30] VITALS: BP 138/68
[2018-12-25 13:00] VITALS: BP 150/80
[2018-12-25 13:30] VITALS: BP 148/79
--- NOTE | 2018-12-25 14:52 | NUR ---
Discharge Instructions See e-MAR for any mediations given with this visit. Patient education given on disease process. Patient verbalized understanding. Previous labs reviewed. Patient discharged in stable condition with after care instructions and follow up appointment. MEDICATIONS LASIX DRIP IN NS [id number] POTASSIUM PO HEPARIN 500 UNITS IVP
[2018-12-25 14:55] VITALS: BP 142/76
[2018-12-25 15:53] LABS: Basophils # (auto) 0 uL; Basophils % (auto) 0.5 % (0.0-2.0); Eosinophils # (auto) 0.2 uL; Eosinophils % (auto) 5.3 % (0.0-7.0); Hematocrit 39.4 % (41.0-53.0); Hemoglobin 13.1 g/dL (13.5-17.5); Lymphocytes # (auto) 1.5 uL; Lymphocytes % (auto) 37.7 % (10.0-50.0); Mean Corpuscular Hemoglobin 31.2 pg (28.0-32.0); Mean Corpuscular Hgb Conc. 33.4 g/dL (32.0-36.0); Mean Corpuscular Volume 93.4 fL (80.0-100.0); Monocytes # (auto) 0.4 uL; Monocytes % (auto) 9.1 % (0.0-12.0); Neutrophils # (auto) 1.9 uL; Neutrophils % (auto) 47.4 % (37.0-80.0); Nucleated Red Blood Cells % 0.1 %; Platelet Count (auto) 170 10^3/uL (140-450); Red Blood Cells 4.21 10^6/uL (4.5-5.90); White Blood Cell 4.1 10^3/uL (4.4-10.8)
[2018-12-25 16:05] LABS: Calcium 8.2 mg/dL (8.5-10.1); Magnesium 2.4 mg/dL (1.6-2.6); Potassium 3.9 mmol/L (3.5-5.1)
== END | disposition home or self-care (01) ==
LOC: CHF HDHVI 11:50
PROVIDERS: ATTEND Internal Medicine Cardiovascular Disease
DX: D64.9 Anemia, unspecified (principal); I11.0 Hypertensive heart disease with heart failure; I50.9 Heart failure, unspecified; I25.10 Atherosclerotic heart disease of native coronary artery without angina pectoris; E11.21 Type 2 diabetes mellitus with diabetic nephropathy; E83.40 Disorders of magnesium metabolism, unspecified; Z95.1 Presence of aortocoronary bypass graft
CPT/HCPCS: 36415; 80048; 83735; 85025; 96365; 96366; G0463; J1642; J1940

== ENCOUNTER → 2019-01-21 | Outpatient (CLI) | payer MEDICARE, MEDICAID ==
[~2019-01-21] MED LIST changes: -FUROSEMIDE 100 MG/10ML VIAL IV ONE; +FUROSEMIDE 40 MG/4 ML VIAL IV ONE; +FUROSEMIDE INJECTION 100 MG in SODIUM CHL 0.9% 100 ML IV SCH; -SODIUM CHLORIDE 0.9% 1,000 ML IV ONE
--- NOTE | 2019-01-21 11:37 | NUR ---
PT. TO CHF CLINIC FOR LASIX DRIP PER MD ORDER. WT STABLE SINCE LAST VISIT BUT NO INCREASE IN ENERGY SINCE LAST TX. MD ORDERS RECEIVED AND CARRIED OUT. SEE NSG ASSESS.
[2019-01-21 12:15] VITALS: BP 135/65
[2019-01-21 13:00] VITALS: BP 165/67
[2019-01-21 13:30] VITALS: BP 150/67
[2019-01-21 14:35] VITALS: BP 149/74
--- NOTE | 2019-01-21 14:35 | NUR ---
CHF COMPLETED INFUSION. TOLERATED WELL . NOTED TO HAVE 3 POUND WEIGHT LOSS DURING TREATMENT. RIGHT CHEST PORT SITE DCD AND SITE BENIGN POST USE. DISCHARGED TO SELF CARE ACCOMPANIED BY IN NO DISTRESS OR DISCOMFORT. VS WNL. MEDICATION ADMINISTRATION LASIX GTT 40 MG/HR START AT 1215/STOP 1424 POTASSIUM 30 MEQ PO AT 1225 HEPARIN 500 UNITS IVP TO RIGHT CHEST PORT AT 1430
[2019-01-21 16:08] LABS: Basophils # (auto) 0 uL; Basophils % (auto) 0.8 % (0.0-2.0); Eosinophils # (auto) 0.2 uL; Eosinophils % (auto) 5.3 % (0.0-7.0); Hematocrit 39.6 % (41.0-53.0); Hemoglobin 13.1 g/dL (13.5-17.5); Lymphocytes # (auto) 1.5 uL; Lymphocytes % (auto) 35.4 % (10.0-50.0); Mean Corpuscular Volume 93.9 fL (80.0-100.0); Monocytes # (auto) 0.4 uL; Monocytes % (auto) 9.8 % (0.0-12.0); Neutrophils # (auto) 2.1 uL; Neutrophils % (auto) 48.7 % (37.0-80.0); Nucleated Red Blood Cells % 0.1 %; Platelet Count (auto) 174 10^3/uL (140-450); Red Blood Cells 4.22 10^6/uL (4.5-5.90); Red Cell Distribution Width 14.9 % (11.8-14.3); White Blood Cell 4.2 10^3/uL (4.4-10.8)
[2019-01-21 16:16] LABS: BUN/Creatinine Ratio 14.1; Calcium 7.9 mg/dL (8.5-10.1); Magnesium 2.6 mg/dL (1.6-2.6); Potassium 3.8 mmol/L (3.5-5.1)
== END | disposition home or self-care (01) ==
LOC: CHF HDHVI 11:36
PROVIDERS: ATTEND Internal Medicine Cardiovascular Disease
DX: I25.10 Atherosclerotic heart disease of native coronary artery without angina pectoris (principal); I11.0 Hypertensive heart disease with heart failure; I50.9 Heart failure, unspecified; D64.9 Anemia, unspecified; D51.9 Vitamin B12 deficiency anemia, unspecified; E11.21 Type 2 diabetes mellitus with diabetic nephropathy; E66.9 Obesity, unspecified; Z95.1 Presence of aortocoronary bypass graft
CPT/HCPCS: 36415; 80048; 82607; 83735; 85025; 96365; 96366; G0463; J1642; J1940

== ENCOUNTER → 2019-03-26 | Outpatient (CLI) | payer MEDICARE, MEDICAID ==
[~2019-03-26] MED LIST changes: -FUROSEMIDE 40 MG/4 ML VIAL IV ONE; -FUROSEMIDE INJECTION 10 ML ONE; -FUROSEMIDE INJECTION 100 MG in SODIUM CHL 0.9% 100 ML IV SCH; -POTASSIUM CHL 10 Meq TABLET PO ONE; -POTASSIUM CHL 20 Meq TABLET PO ONE
== END | disposition home or self-care (01) ==
LOC: CHF HDHVI 08:09
PROVIDERS: ATTEND Internal Medicine
DX: I82.409 Acute embolism and thrombosis of unspecified deep veins of unspecified lower extremity (principal); R10.9 Unspecified abdominal pain
CPT/HCPCS: 93971

== ENCOUNTER → 2019-05-20 | Outpatient (CLI) | payer MEDICARE ==
[2019-05-20 10:10] LABS: Calcium 8.4 mg/dL (8.5-10.1); Potassium 4.4 mmol/L (3.5-5.1)
[2019-05-20 10:15] LABS: BUN/Creatinine Ratio 11.9
== END | disposition home or self-care (01) ==
LOC: LAB 09:25
PROVIDERS: ATTEND Internal Medicine
DX: E11.9 Type 2 diabetes mellitus without complications (principal); E78.00 Pure hypercholesterolemia, unspecified
CPT/HCPCS: 36415; 80048; 80061; 83036

== ENCOUNTER → 2019-10-14 | Outpatient (CLI) | payer MEDICARE ==
[2019-10-14 10:28] LABS: Basophils # (auto) 0 10 ^3/uL (0-0.2); Basophils % (auto) 0.7 % (0.0-2.0); Eosinophils # (auto) 0.2 10 ^3/uL (0-0.8); Eosinophils % (auto) 4.5 % (0.0-7.0); Hematocrit 44.4 % (41.0-53.0); Hemoglobin 15.2 g/dL (13.5-17.5); Lymphocytes # (auto) 1.8 10 ^3/uL (0.4-5.4); Lymphocytes % (auto) 33.6 % (10.0-50.0); Mean Corpuscular Hemoglobin 31.6 pg (28.0-32.0); Mean Corpuscular Hgb Conc. 34.1 g/dL (32.0-36.0); Mean Corpuscular Volume 92.5 fL (80.0-100.0); Monocytes # (auto) 0.4 10 ^3/uL (0-1.3); Neutrophils # (auto) 2.8 10 ^3/uL (1.6-8.6); Neutrophils % (auto) 53.2 % (37.0-80.0); Platelet Count (auto) 174 10^3/uL (140-450); Red Cell Distribution Width 14.2 % (11.8-14.3); White Blood Cell 5.3 10^3/uL (4.4-10.8)
[2019-10-14 10:56] LABS: Albumin 3.6 g/dL (3.4-5.0); Calcium 8.8 mg/dL (8.5-10.1); Potassium 4.1 mmol/L (3.5-5.1)
[2019-10-14 11:02] LABS: BUN/Creatinine Ratio 11.2; Bilirubin, Total 1.2 mg/dL (0.2-1.0); Total Protein 7.7 g/dL (6.4-8.2)
[2019-10-14 11:06] LABS: Free T4 (Free Thyroxine) 0.96 ng/dL (0.89-1.76)
== END | disposition home or self-care (01) ==
LOC: LAB 10:03
PROVIDERS: ATTEND Internal Medicine
DX: E11.22 Type 2 diabetes mellitus with diabetic chronic kidney disease (principal); I12.9 Hypertensive chronic kidney disease with stage 1 through stage 4 chronic kidney disease, or unspecified chronic kidney disease; N18.3 Chronic kidney disease, stage 3 (moderate); D64.9 Anemia, unspecified; E78.00 Pure hypercholesterolemia, unspecified
CPT/HCPCS: 36415; 80053; 80061; 82607; 83036; 83540; 84439; 84443; 85025

== ENCOUNTER → 2020-05-05 | Outpatient (CLI) | payer MEDICARE, MEDICAID ==
[~2020-05-05] MED LIST changes: -CLOP75TA41 PO; +CLOP75TA70 PO; +GLIP5TAB12 PO; +LEVO125T7 PO; +METF-372 PO
== END | disposition home or self-care (01) ==
LOC: Rad HDHVI 10:23
PROVIDERS: ATTEND Internal Medicine
DX: I07.1 Rheumatic tricuspid insufficiency (principal); I48.91 Unspecified atrial fibrillation; I11.0 Hypertensive heart disease with heart failure; I50.32 Chronic diastolic (congestive) heart failure
CPT/HCPCS: 93306

== ENCOUNTER → 2020-05-31 | Outpatient (CLI) | payer MEDICARE ==
[~2020-05-31] MED LIST changes: -GLIP5TAB12 PO; -LEVO125T7 PO; -METF-372 PO
[2020-05-31 11:50] LABS: Albumin 3.7 g/dL (3.4-5.0); BUN/Creatinine Ratio 11.2; Calcium 9.3 mg/dL (8.5-10.1); Potassium 4.2 mmol/L (3.5-5.1)
[2020-05-31 11:54] LABS: Bilirubin, Total 1.2 mg/dL (0.2-1.0); Total Protein 8.1 g/dL (6.4-8.2)
[2020-05-31 11:55] LABS: Basophils # (auto) 0 10 ^3/uL (0-0.2); Basophils % (auto) 0.7 % (0.0-2.0); Eosinophils # (auto) 0.3 10 ^3/uL (0-0.8); Eosinophils % (auto) 4.8 % (0.0-7.0); Hematocrit 43.1 % (41.0-53.0); Hemoglobin 15.1 g/dL (13.5-17.5); Lymphocytes # (auto) 2.2 10 ^3/uL (0.4-5.4); Lymphocytes % (auto) 36.5 % (10.0-50.0); Mean Corpuscular Hemoglobin 32.8 pg (28.0-32.0); Mean Corpuscular Volume 93.7 fL (80.0-100.0); Monocytes # (auto) 0.5 10 ^3/uL (0-1.3); Monocytes % (auto) 7.6 % (0.0-12.0); Neutrophils # (auto) 3.1 10 ^3/uL (1.6-8.6); Neutrophils % (auto) 50.4 % (37.0-80.0); Nucleated Red Blood Cells % 0.1 %; Platelet Count (auto) 193 10^3/uL (140-450); Red Blood Cells 4.61 10^6/uL (4.5-5.90); Red Cell Distribution Width 13.8 % (11.8-14.3); White Blood Cell 6.1 10^3/uL (4.4-10.8)
[2020-05-31 11:58] LABS: Urine Blood Negative /uL (Negative); Urine Specific Gravity 1.029 (1.001-1.035)
[2020-05-31 12:00] LABS: Free T4 (Free Thyroxine) 0.67 ng/dL (0.89-1.76)
[2020-05-31 12:01] LABS: Prostate Specific Antigen 0.43 ng/mL (0.0-4.0)
== END | disposition home or self-care (01) ==
LOC: LAB 09:29
PROVIDERS: ATTEND Internal Medicine
DX: C61 Malignant neoplasm of prostate (principal); D51.3 Other dietary vitamin B12 deficiency anemia; I10 Essential (primary) hypertension; E11.9 Type 2 diabetes mellitus without complications; E55.9 Vitamin D deficiency, unspecified; D64.9 Anemia, unspecified; R00.2 Palpitations; R53.1 Weakness; R30.0 Dysuria
CPT/HCPCS: 36415; 80053; 80061; 81003; 82306; 82607; 83036; 84153; 84403; 84439; 84443; 85025

== ENCOUNTER 2020-09-29 15:25 | Inpatient (IN) | payer MEDICARE, MEDICAID ==
[~2020-09-29] VITALS: Ht 170.2 cm; Wt 102.4 kg
[2020-09-29] MEDS ORDERED: SODIUM CHLORIDE 0.9% 1,000 ML IVB ONE (15:45)
[2020-09-29 16:41] LABS: Basophils # (auto) 0 10 ^3/uL (0-0.2); Basophils % (auto) 0.5 % (0.0-2.0); Eosinophils # (auto) 0.3 10 ^3/uL (0-0.8); Eosinophils % (auto) 4.4 % (0.0-7.0); Hematocrit 38.6 % (41.0-53.0); Hemoglobin 13.6 g/dL (13.5-17.5); Lymphocytes # (auto) 1.6 10 ^3/uL (0.4-5.4); Lymphocytes % (auto) 27.6 % (10.0-50.0); Mean Corpuscular Hemoglobin 32.9 pg (28.0-32.0); Mean Corpuscular Hgb Conc. 35.1 g/dL (32.0-36.0); Mean Corpuscular Volume 93.8 fL (80.0-100.0); Monocytes # (auto) 0.4 10 ^3/uL (0-1.3); Monocytes % (auto) 7.6 % (0.0-12.0); Neutrophils # (auto) 3.5 10 ^3/uL (1.6-8.6); Neutrophils % (auto) 59.9 % (37.0-80.0); Red Blood Cells 4.11 10^6/uL (4.5-5.90); Red Cell Distribution Width 13.2 % (11.8-14.3); White Blood Cell 5.9 10^3/uL (4.4-10.8)
[2020-09-29 16:47] LABS: Albumin 3.4 g/dL (3.4-5.0); Anion Gap 10 (5-15); Blood Urea Nitrogen 24 mg/dL (7-18); Calcium 8.2 mg/dL (8.5-10.1); Carbon Dioxide 24 mmol/L (21-32); Chloride 97 mmol/L (98-107); Magnesium 2.6 mg/dL (1.6-2.6); Potassium 3.7 mmol/L (3.5-5.1); Sodium 131 mmol/L (136-145)
[2020-09-29 16:49] LABS: BUN/Creatinine Ratio 10.3; GFR African American 35 mL/min; GFR Non-African American 29 mL/min
[2020-09-29 16:54] LABS: Alanine Aminotransferase 59 U/L (16-61); Alkaline Phosphatase 109 U/L (45-117); Aspartate Aminotransferase 34 U/L (15-37); Bilirubin, Total 0.9 mg/dL (0.2-1.0); Total Protein 7.9 g/dL (6.4-8.2)
[2020-09-29 16:56] LABS: Urine Bacteria NONE SEEN /hpf (None Seen); Urine Blood Negative /uL (Negative); Urine Specific Gravity 1.034 (1.001-1.035); Urine WBC <1 /hpf (0 - 3)
[2020-09-29 17:02] LABS: Glucose 655 mg/dL (74-106)
[2020-09-29] MEDS ORDERED: InsuLIN REG 1unit/0.01ml Soln (100units/ml) IV ONE (18:00)
[2020-09-29] MEDS ORDERED: SODIUM CHLORIDE 0.9% 1,000 ML IV ONE (18:00)
[2020-09-29] MEDS ORDERED: TEMAZEPAM 15 MG CAP PO PRN (21:45)
[2020-09-29] MEDS ORDERED: ACETAMINOPHEN 325 MG TAB PO PRN (21:45)
[2020-09-29] MEDS ORDERED: DEXTROSE (50%) 50ML SYRG IV PRN (21:45)
[2020-09-29] MEDS ORDERED: ONDANSETRON HCL 4 MG/2 ML VIAL IV PRN (21:45)
[2020-09-30] VITALS (7 sets, daily range): BP systolic 119–150; BP diastolic 70–81
[2020-09-30] MEDS: ACCU-CHEK COMFORT CURVE STRIP VI SCH ×6 (00:43→22:06)
[2020-09-30] MEDS: InsuLIN REG 1unit/0.01ml Soln (100units/ml) SC SCH ×5 (00:44→22:12)
[2020-09-30] MEDS: LEVOTHYROXINE SODIUM 100 MCG TAB PO SCH (06:15)
[2020-09-30 06:51] LABS: Basophils # (auto) 0.1 10 ^3/uL (0-0.2); Basophils % (auto) 0.9 % (0.0-2.0); Eosinophils # (auto) 0.3 10 ^3/uL (0-0.8); Eosinophils % (auto) 4.4 % (0.0-7.0); Hematocrit 36.6 % (41.0-53.0); Hemoglobin 13.3 g/dL (13.5-17.5); Lymphocytes # (auto) 2.3 10 ^3/uL (0.4-5.4); Lymphocytes % (auto) 36.1 % (10.0-50.0); Mean Corpuscular Hemoglobin 32.9 pg (28.0-32.0); Mean Corpuscular Hgb Conc. 36.2 g/dL (32.0-36.0); Mean Corpuscular Volume 90.8 fL (80.0-100.0); Monocytes # (auto) 0.6 10 ^3/uL (0-1.3); Monocytes % (auto) 8.8 % (0.0-12.0); Neutrophils # (auto) 3.1 10 ^3/uL (1.6-8.6); Neutrophils % (auto) 49.8 % (37.0-80.0); Red Blood Cells 4.04 10^6/uL (4.5-5.90); Red Cell Distribution Width 13.4 % (11.8-14.3); White Blood Cell 6.3 10^3/uL (4.4-10.8)
[2020-09-30 07:09] LABS: BUN/Creatinine Ratio 14.2; Calcium 8.1 mg/dL (8.5-10.1); Potassium 3.1 mmol/L (3.5-5.1)
[2020-09-30] MEDS: QUEtiapine FUMARATE 100 MG TAB PO SCH (09:20)
[2020-09-30] MEDS: FUROSEMIDE 20 MG TAB PO SCH (09:20)
[2020-09-30] MEDS: PANTOPRAZOLE 40 MG TAB PO SCH (09:20)
[2020-09-30] MEDS: CLOPIDOGREL BISULFATE 75 MG TAB PO SCH (09:20)
[2020-09-30] MEDS: LOSARTAN POTASSIUM 50 MG TAB PO SCH (09:21)
[2020-09-30] MEDS ORDERED: DEXTROSE (50%) 50ML SYRG IV PRN (15:00)
[2020-09-30] MEDS ORDERED: TAMSULOSIN HYDROCHLORIDE 0.4 MG CAP PO SCH (18:00)
[2020-10-01 05:00] VITALS: BP 147/85
[2020-10-01] MEDS: ACCU-CHEK COMFORT CURVE STRIP VI SCH ×2 (06:15→11:47)
[2020-10-01] MEDS: LEVOTHYROXINE SODIUM 100 MCG TAB PO SCH (06:15)
[2020-10-01] MEDS: InsuLIN REG 1unit/0.01ml Soln (100units/ml) SC SCH ×2 (06:17→11:48)
[2020-10-01 07:03] LABS: Calcium 8.3 mg/dL (8.5-10.1); Magnesium 2.3 mg/dL (1.6-2.6); Potassium 3.5 mmol/L (3.5-5.1)
[2020-10-01 07:08] LABS: BUN/Creatinine Ratio 13.7
[2020-10-01 09:00] VITALS: BP 124/60
[2020-10-01] MEDS: CLOPIDOGREL BISULFATE 75 MG TAB PO SCH (10:29)
[2020-10-01] MEDS: QUEtiapine FUMARATE 100 MG TAB PO SCH (10:29)
[2020-10-01] MEDS: PANTOPRAZOLE 40 MG TAB PO SCH (10:29)
[2020-10-01] MEDS: LOSARTAN POTASSIUM 50 MG TAB PO SCH (10:30)
[2020-10-01] MEDS: FUROSEMIDE 20 MG TAB PO SCH (10:30)
[2020-10-01] MEDS ORDERED: GLIP5TAB12 PO (11:15)
[2020-10-01] MEDS ORDERED: LEVO125T7 PO (11:15)
[2020-10-01] MEDS ORDERED: METF-372 PO (11:17)
[2020-10-01 13:00] VITALS: BP 152/92
[2020-10-01 15:20] VITALS: BP 152/92
[2020-10-02] MEDS ORDERED: LEVOTHYROXINE SODIUM 50 MCG TAB PO SCH (07:00)
== END 2020-10-01 16:25 | disposition home health service (06) | DRG 637 ==
LOC: ER 15:25 → OVERFLOW 21:35 → EAST 23:27
PROVIDERS: ADMIT Nurse Practitioner; ATTEND Internal Medicine
DX: E11.65 Type 2 diabetes mellitus with hyperglycemia (principal); N17.0 Acute kidney failure with tubular necrosis; N18.4 Chronic kidney disease, stage 4 (severe); E87.1 Hypo-osmolality and hyponatremia; E03.9 Hypothyroidism, unspecified; E11.22 Type 2 diabetes mellitus with diabetic chronic kidney disease; E66.01 Morbid (severe) obesity due to excess calories; E78.5 Hyperlipidemia, unspecified; F03.90 Unspecified dementia, unspecified severity, without behavioral disturbance, psychotic disturbance, mood disturbance, and anxiety; F32.9 Major depressive disorder, single episode, unspecified; F41.9 Anxiety disorder, unspecified; Z88.5 Allergy status to narcotic agent; Z88.1 Allergy status to other antibiotic agents; Z91.041 Radiographic dye allergy status; Z88.8 Allergy status to other drugs, medicaments and biological substances; Z68.35 Body mass index [BMI] 35.0-35.9, adult; Z20.822 Contact with and (suspected) exposure to COVID-19
CPT/HCPCS: 36415; 71045; 80048; 80053; 80061; 81001; 82010; 82962; 83036; 83690; 83735; 84443; 84484; 85025; 85049; 87426; 93005; 96361; 96374; G0378; J1815

== ENCOUNTER → 2020-09-29 | Outpatient (CLI) | payer MEDICARE, MEDICAID ==
[2020-09-29 13:28] LABS: Urine Bacteria NONE SEEN /hpf (None Seen); Urine Blood Negative /uL (Negative); Urine Hyaline Cast FEW /lpf (0 - 2); Urine Specific Gravity 1.029 (1.001-1.035); Urine WBC 1 /hpf (0 - 3)
[2020-09-29 13:30] LABS: Basophils # (auto) 0 10 ^3/uL (0-0.2); Basophils % (auto) 0.6 % (0.0-2.0); Eosinophils # (auto) 0.3 10 ^3/uL (0-0.8); Eosinophils % (auto) 4.4 % (0.0-7.0); Hematocrit 41.4 % (41.0-53.0); Lymphocytes # (auto) 2.1 10 ^3/uL (0.4-5.4); Lymphocytes % (auto) 34.3 % (10.0-50.0); Mean Corpuscular Hemoglobin 31.9 pg (28.0-32.0); Mean Corpuscular Hgb Conc. 33.8 g/dL (32.0-36.0); Mean Corpuscular Volume 94.5 fL (80.0-100.0); Monocytes # (auto) 0.5 10 ^3/uL (0-1.3); Monocytes % (auto) 7.5 % (0.0-12.0); Neutrophils # (auto) 3.3 10 ^3/uL (1.6-8.6); Neutrophils % (auto) 53.2 % (37.0-80.0); Nucleated Red Blood Cells % 0.1 %; Platelet Count (auto) 180 10^3/uL (140-450); Red Blood Cells 4.38 10^6/uL (4.5-5.90); Red Cell Distribution Width 13.1 % (11.8-14.3); White Blood Cell 6.2 10^3/uL (4.4-10.8)
[2020-09-29 13:52] LABS: Potassium 3.7 mmol/L (3.5-5.1)
[2020-09-29 13:59] LABS: Albumin 3.5 g/dL (3.4-5.0); BUN/Creatinine Ratio 10.6; Bilirubin, Total 1.1 mg/dL (0.2-1.0); Calcium 8.6 mg/dL (8.5-10.1); Total Protein 8.1 g/dL (6.4-8.2)
== END | disposition home or self-care (01) ==
LOC: LAB 12:49
PROVIDERS: ATTEND Internal Medicine
DX: E11.9 Type 2 diabetes mellitus without complications (principal); E03.9 Hypothyroidism, unspecified
CPT/HCPCS: 36415; 80053; 81001; 83036; 84443; 85025; 85049

== ENCOUNTER → 2020-11-17 | Outpatient (CLI) | payer MEDICARE, MEDICAID ==
[~2020-11-17] MED LIST changes: +GLIP5TAB12 PO; -LEVO100T8 PO; +LEVO125T7 PO; +METF-372 PO
[2020-11-17 14:46] LABS: Free T4 (Free Thyroxine) 0.98 ng/dL (0.89-1.76); Prolactin 10.57 ng/mL (2.8-29.2)
[2020-11-17 14:47] LABS: Follicle Stimulating Hormone 5.34 IU/L (1.4-18.1); Free T3 2.06 pg/mL (2.3-4.2); Leuteinizing Hormone 2.6 IU/L (3.1-34)
== END | disposition home or self-care (01) ==
LOC: LAB 13:44
PROVIDERS: ATTEND Internal Medicine
DX: D35.2 Benign neoplasm of pituitary gland (principal)
CPT/HCPCS: 36415; 82024; 82530; 83001; 83002; 84146; 84403; 84439; 84443; 84481

== ENCOUNTER → 2021-01-05 | Outpatient (CLI) | payer MEDICARE, MEDICAID ==
[2021-01-05 14:27] LABS: Basophils # (auto) 0 10 ^3/uL (0-0.2); Basophils % (auto) 0.6 % (0.0-2.0); Eosinophils # (auto) 0.2 10 ^3/uL (0-0.8); Eosinophils % (auto) 4.1 % (0.0-7.0); Hematocrit 41.4 % (41.0-53.0); Hemoglobin 14.2 g/dL (13.5-17.5); Lymphocytes # (auto) 2.2 10 ^3/uL (0.4-5.4); Lymphocytes % (auto) 39.7 % (10.0-50.0); Mean Corpuscular Hemoglobin 32.2 pg (28.0-32.0); Mean Corpuscular Hgb Conc. 34.2 g/dL (32.0-36.0); Monocytes # (auto) 0.5 10 ^3/uL (0-1.3); Monocytes % (auto) 9.9 % (0.0-12.0); Neutrophils # (auto) 2.5 10 ^3/uL (1.6-8.6); Neutrophils % (auto) 45.7 % (37.0-80.0); Nucleated Red Blood Cells % 0.1 %; Red Blood Cells 4.41 10^6/uL (4.5-5.90); Red Cell Distribution Width 13.5 % (11.8-14.3); White Blood Cell 5.5 10^3/uL (4.4-10.8)
[2021-01-05 14:44] LABS: Albumin 3.4 g/dL (3.4-5.0); Calcium 8.5 mg/dL (8.5-10.1); Potassium 3.9 mmol/L (3.5-5.1)
[2021-01-05 14:48] LABS: BUN/Creatinine Ratio 14.3; Bilirubin, Total 1.1 mg/dL (0.2-1.0); Total Protein 7.5 g/dL (6.4-8.2)
== END | disposition home or self-care (01) ==
LOC: LAB 14:04
PROVIDERS: ATTEND Internal Medicine
DX: E11.9 Type 2 diabetes mellitus without complications (principal); E03.9 Hypothyroidism, unspecified
CPT/HCPCS: 36415; 80053; 83036; 84439; 84443; 85025